=== PATIENT | male | born 1940 | race Caucasian/White ===

== ENCOUNTER 2016-12-03 05:36 | Emergency (ER) | payer MEDICARE, OTHER ==
[2016-12-03] MEDS ORDERED: METHYLPREDNISOLONE SOD SUCC/PF 40 MG/ML VIAL IV ONE (05:40)
[2016-12-03] MEDS ORDERED: ALBUTEROL SULFATE/IPRATROPIUM 3 ML NEBU IH ONE ×2 (05:40→05:48)
--- NOTE | 2016-12-03 05:41 | ERNOTE ---
Medical Problem HPI - General Source: patient Exam Limitations: no limitations - Immun/Allergies/Home Medications Immunizations: IMMUNIZATION HX Immunizations Up to Date Yes History of Influenza Vaccine Yes Hx Pneumococcal Vaccination Yes Allergies/Adverse Reactions: Allergies lisinopril Allergy (Severe, Verified 07/19/16 06:26) Swelling of Tongue penicillin G Allergy (Mild, Verified 07/19/16 06:26) Hives Home Medications: HOME MEDICATIONS Aspirin 325 mg PO DAILY 01/29/16 [Last Taken Unknown] Atorvastatin Calcium 80 mg PO HS 01/29/16 [Last Taken Unknown] Citalopram Hydrobromide [Citalopram HBr] 40 mg PO DAILY 01/29/16 [Last Taken Unknown] Clopidogrel Bisulfate [Plavix] 75 mg PO DAILY 01/29/16 [Last Taken Unknown] Finasteride [Proscar] 5 mg PO DAILY 01/29/16 [Last Taken Unknown] Fluticasone/Salmeterol [Advair 250-50 Diskus] 1 puff IH BID 01/29/16 [Last Taken Unknown] Gabapentin 300 mg PO TID 01/29/16 [Last Taken Unknown] Insulin Aspart [Novolog] 15 units SC TID 01/29/16 [Last Taken Unknown] Ipratropium [place] [Atrovent] 1 vial IH Q6H PRN 01/29/16 [Last Taken Unknown] Levalbuterol Tartrate [Xopenex Hfa] 2 puff IH Q8H PRN 01/29/16 [Last Taken Unknown] Levothyroxine Sodium [Synthroid] 175 mcg PO DAILY 01/29/16 [Last Taken Unknown] Losartan Potassium [Cozaar] 50 mg PO DAILY 01/29/16 [Last Taken Unknown] Metoclopramide HCl [Reglan] 5 mg PO QID 01/29/16 [Last Taken Unknown] Omeprazole [Prilosec] 20 mg PO BID 01/29/16 [Last Taken Unknown] Polyethylene Glycol 3350 [Gavilax] 17 gm PO DAILY 01/29/16 [Last Taken Unknown] Umeclidinium [place] [Incruse Ellipta] 1 puff IH DAILY 01/29/16 [Last Taken Unknown] rOPINIRole HCL [Requip] 2 mg PO HS 01/29/16 [Last Taken Unknown] traMADol HCL [Ultram] 50 mg PO QID PRN 01/29/16 [Last Taken Unknown] Insulin Glargine,Hum.rec.anlog [Lantus] 50 units SC HS #2 vial 01/31/16 [Last Taken Unknown] Levofloxacin [Levaquin] 750 mg PO DAILY@1100 #5 tablet 01/31/16 [Last Taken Unknown] Cefpodoxime Proxetil 200 mg PO BID #20 tablet 07/19/16 [Last Taken Unknown] Levofloxacin [Levaquin] 500 mg PO DAILY #10 tablet 12/03/16 [Last Taken Unknown] - History of Present History Narrative: Here for shortness of breath which started three hours prior to presentation to ED. Has history of COPD and emphysema. Denies fevers or chills Review of Systems - Review of Systems Constitutional: Present: no symptoms reported EYE: Present: no symptoms reported ENT: Present: no symptoms reported Respiratory: Present: See HPI Cardiology: Present: no symptoms reported Gastrointestinal/Abdominal: Present: no symptoms reported Genitourinary: Present: no symptoms reported Musculoskeletal: Present: no symptoms reported Skin: Present: no symptoms reported - Patient's Past Medical History Patient History - Medical: Arthritis, Cataracts, Diabetes Type 2, Depression, GERD, Hypothyroidism Patient History - Cardiac/Respiratory: Hypertension Patient History - Cancer: No Hx of Cancer Patient History - Surgical Procedures: Appendectomy, Cataracts, Total Hip Replacement Patient History - Other: None - Family History Father Family History - Medical: Family History - Cardiac/Respiratory: Hypertension Mother Family History - Medical: , Diabetes Type 2 Family History - Cardiac/Respiratory: Coronary Heart Disease - Social History Living Situations: detention Abuse History: No History of abuse Psych History: Hx of Depression Does anyone smoke in the home?: No Alcohol Use: none Drug Use: none - Immunizations Immunizations Up to Date: Yes Hx Pneumococcal Vaccination: Yes History of Influenza Vaccine: Yes Physical Exam - Physical Exam General Appearance: Present: wd/wn, alert, mild distress - mild resp distress. Resolves nicely with Duoneb and Solumedrol Ears, Nose, Throat: Present: normal ENT inspection Neck: Present: normal inspection, nontender Respiratory: Present: respiratory distress - mild respiratory distress, some bibasal wheezes noted, no rales. Wheezing resolves with Breathing treatment Cardiovascular/Chest: Present: regular rate, rhythm, no murmur, normal peripheral pulses ED Progress - Results and Orders Patient's Lab Results:: I have reviewed the patient's lab results. - Vital Signs Patient's Vital Signs:: I have reviewed the patient's vital signs. Plan - Plan Plan: this patient has COPD exacerbation and will be treated accordingly Departure - Departure Clinical Impression: COPD (chronic obstructive pulmonary disease) Qualifiers: COPD type: unspecified COPD Qualified Code(s): J44.9 - Chronic obstructive pulmonary disease, unspecified Disposition: Home self-care Condition: Good Instructions: Chronic Obstructive Pulmonary Disease Exacerbation, [id number] Prescriptions: Levofloxacin [Levaquin] 500 mg PO DAILY #10 tablet
[2016-12-03] MEDS ORDERED: METHYLPREDNISOLONE SOD SUCC/PF 125 MG/2 ML VIAL ONE (05:53)
[2016-12-03 06:06] LABS: Hematocrit 28.7 % (42.0-52.0); Hemoglobin 8.8 gm/dL (13.5-18.0); Mean Cell Volume 71.8 fl (78-100); Mean Corpuscular Hgb Conc 30.7 g/dl (32-36); Mean Platelet Volume 8.9 fl (6.0-9.5); Neutrophil # 10.8 K/mm3 (1.3-6.0); Neutrophil % 75.4 % (42-75.0); Platelet Count 317 K/mm3 (150-450); Red Cell Distribution Width 15.4 % (11.5-14.0); White Blood Count 14.3 K/mm3 (4.0-10.5)
[2016-12-03 06:27] LABS: Albumin * 2.6 gm/dl (3.4-5.0); Anion Gap 8.7 mmol/L (6.8-13.8); BUN/Creatinine Ratio 24.8 (9.0-21.6); Bilirubin, Total 0.2 mg/dL (0.0-1.1); Ca. Corrected For Albumin 9.3 mg/dL (8.4-10.2); Calcium * 8.5 mg/dL (7.9-10.9); Potassium 4.7 mmol/L (3.4-4.6); Total Protein 6.8 gm/dL (6.2-8.2)
[2016-12-03] MEDS ORDERED: LEVOFLOXACIN 500 MG TABLET PO ONE (06:58)
[2016-12-03] MEDS ORDERED: LEVOFLOXACIN 500 MG TABLET ONE (06:59)
[2016-12-03 07:06] VITALS: BP 156/75
--- OUTSIDE RECORDS SUMMARY | 2016-12-03 07:09 | XMS REPORT | Continuity of Care Document ---
:1940 Author Organization [facility] ([facility]) Address [address] [place] [address] Phone [phone] Care Team Providers Name Role Phone Wilfrid Casiano Primary Care Provider [phone] Source Comments This disclosure is being made pursuant to the Care Everywhere program, applicable federal and state laws, and may not contain all informaitonavailable regarding this patient.[facility] ([facility]) Active Allergies and Adverse Reactions Allergen Noted Date Severity Reactions Comments Lisinopril 12/29/2015 Unknown Penicillin 09/24/2015 Rash Current Medications Prescription Sig. Disp. Refills Start Date End Date Status levothyroxine 175 Take 175 mcg by Active mcg tablet mouth every morning before breakfast. omeprazole 20 mg Take 20 mg by mouth Active enteric coated 2 times daily. capsule gabapentin 300 mg Take 300 mg by mouth Active capsule 3 times daily. finasteride 5 mg Take 5 mg by mouth Active tablet daily. insulin glargine Inject 40 Units Active (LanTUS) 100 unit/mL subcutaneously at injection vial bedtime. aspirin 325 mg EC Take 325 mg by mouth Active tablet daily. metoclopramide 5 mg Take 5 mg by mouth 4 Active tablet times daily. citalopram 20 mg Take 20 mg by mouth Active tablet at bedtime . albuterol-ipratropiu Use 3 mL by Active m 2.5-0.5 mg/3 mL inhalation every 6 inhalation solution hours as needed . ferrous sulfate 325 Take 325 mg by mouth Active mg (65 mg iron) daily. tablet atorvastatin 80 mg Take 80 mg by mouth Active tablet every evening. polyethylene glycol Take 17 g by mouth Active 3350 17 gram packet daily. sennosides 8.6 mg Take 2 tablets by Active tablet mouth 2 times daily. levalbuterol Use 2 Puffs by Active (XOPENEX HFA) 45 inhalation every 8 mcg/Actuation hours as needed. inhaler rOPINIRole 2 mg Take 2 mg by mouth Active tablet at bedtime. tiotropium (SPIRIVA) Use 18 mcg by Active 18 mcg inhalation inhalation daily. capsule insulin aspart Inject 10 Units Active (NovoLOG) 100 subcutaneously 3 unit/mL injection times daily before vial meals. clopidogrel 75 mg Take 75 mg by mouth Active tablet daily. fluticasone-salmeter Use 1 Puff by Active ol (ADVAIR 250-50) inhalation every 12 inhaler hours. sennoside-docusate Take 2 tablets by Active sodium 8.6-50 mg per mouth 2 times daily. tablet HYDROcodone-acetamin Take 1 tablet by 30 tablet 0 09/29/2015 Active ophen 5-325 mg per mouth every 6 hours tablet as needed. traMADol 50 mg Take 1 tablet (50 mg 30 tablet 0 09/29/2015 Active tablet total) by mouth 4 times daily as needed. insulin lispro Inject Active (HumaLOG) 100 subcutaneously 3 unit/mL injection times daily before vial meals. nystatin 100,000 Take 5 mL by mouth 4 Active unit/mL suspension times daily. Swish and swallow. umeclidinium Use 1 Puff by Active (INCRUSE ELLIPTA) inhalation daily. 62.5 mcg/actuation inhaler losartan 50 mg Take 50 mg by mouth Active tablet daily. acetaminophen 325 mg Take 325 mg by mouth Active tablet every 4 hours as needed. Active Problems Problem Noted Date Open fracture of left fibula and tibia 09/24/2015 Type 2 diabetes mellitus without complication 09/24/2015 Coronary artery disease involving [place] coronary artery of [place] heart 09/23 without angina pectoris Pulmonary emphysema 09/24/2015 Fx tibia/fibula shaft-op 09/24/2015 Most Recent Encounters Date Type Specialty Providers Description 10/31/2016 Telephone Orthopaedic Gregory Tate MD Immunizations Name Dates Previously Given Next Due Pneumococcal Polysaccharide, PPSV23 (Pneumovax 23) 09/29/2015 Social History Tobacco Use Types Packs/Day Years Used Date Former Smoker Cigarettes Smokeless Tobacco: Former User Chew Tobacco Cessation:Counseling Given: No Comments: Last Filed Vital Signs Vital Sign Reading Time Taken Blood Pressure 161/71 09/29/2015 8:00 AM [employer] Pulse 79 09/29/2015 8:00 AM [employer] Temperature 35.7 C (96.3 F) 09/29/2015 8:00 AM [employer] Respiratory Rate 20 09/29/2015 12:00 PM [employer] Height 1.778 m (5' 10") 09/24/2015 11:30 PM [employer] Weight 90 kg (198 lb 6.6 oz) 09/28/2015 4:00 PM [employer] Body Mass Index 28.47 09/28/2015 4:00 PM [employer] Oxygen Saturation 96% 09/29/2015 8:00 AM [employer] Plan of Care Health Maintenance Due Date Last Done Comments Hepatitis B Vaccine (1 of 3 - Primary 1940 Series) Tdap Vaccine 1950 Td Vaccine 1957 Colonoscopy 02/11/1989 DIABETIC: Cholesterol 04/21/1998 04/21/1997, 03/10/1997, 07/19/1996 Diabetic: Hdl 04/21/1998 04/21/1997, 03/10/1997, 07/19/1996 Diabetic: Ldl 04/21/1998 04/21/1997, 03/10/1997, 07/19/1996 DIABETIC: Microalbumin 04/21/1998 04/21/1997, 04/19/1996 DIABETIC: Triglycerides 04/21/1998 04/21/1997, 03/10/1997, 07/19/1996 Zoster Vaccine 1999 DIABETIC: Foot Exam 09/24/2015 DIABETIC: Retinal Eye Exam 09/24/2015 DIABETIC: Hemoglobin A1C 03/27/2016 09/25/2015 Pneumococcal Vaccine (2 of 2 - PCV13) 09/28/2016 09/29/2015 Influenza Vaccine: Seasonal (Season 02/21/2017 Ended) Results from Last 3 Months Not on file
== END 2016-12-03 07:16 | disposition home or self-care (01) ==
LOC: ER 05:36
DX: J44.9 Chronic obstructive pulmonary disease, unspecified (principal)

== ENCOUNTER 2016-12-07 18:24 | Observation (INO) | payer MEDICAID, MEDICARE ==
--- NOTE | 2016-12-07 19:09 | ERNOTE ---
Dyspnea - General Presenting Symptoms: shortness of breath Time Seen by Provider: 12/07/16 18:56 Source: patient, family Exam Limitations: no limitations - Immun/Allergies/Home Medications Immunizations: IMMUNIZATION HX Immunizations Up to Date Yes History of Influenza Vaccine Yes Hx Pneumococcal Vaccination Yes Allergies/Adverse Reactions: Allergies lisinopril Allergy (Severe, Verified 12/07/16 18:40) Swelling of Tongue penicillin G Allergy (Mild, Verified 12/07/16 18:40) Hives Home Medications: HOME MEDICATIONS Aspirin 325 mg PO DAILY 01/29/16 [Last Taken Unknown] Atorvastatin Calcium 80 mg PO HS 01/29/16 [Last Taken Unknown] Citalopram Hydrobromide [Citalopram HBr] 40 mg PO DAILY 01/29/16 [Last Taken Unknown] Clopidogrel Bisulfate [Plavix] 75 mg PO DAILY 01/29/16 [Last Taken Unknown] Finasteride [Proscar] 5 mg PO DAILY 01/29/16 [Last Taken Unknown] Fluticasone/Salmeterol [Advair 250-50 Diskus] 1 puff IH BID 01/29/16 [Last Taken Unknown] Gabapentin 300 mg PO TID 01/29/16 [Last Taken Unknown] Insulin Aspart [Novolog] 15 units SC TID 01/29/16 [Last Taken Unknown] Ipratropium [place] [Atrovent] 1 vial IH Q6H PRN 01/29/16 [Last Taken Unknown] Levalbuterol Tartrate [Xopenex Hfa] 2 puff IH Q8H PRN 01/29/16 [Last Taken Unknown] Levothyroxine Sodium [Synthroid] 175 mcg PO DAILY 01/29/16 [Last Taken Unknown] Losartan Potassium [Cozaar] 50 mg PO DAILY 01/29/16 [Last Taken Unknown] Metoclopramide HCl [Reglan] 5 mg PO QID 01/29/16 [Last Taken Unknown] Omeprazole [Prilosec] 20 mg PO BID 01/29/16 [Last Taken Unknown] Polyethylene Glycol 3350 [Gavilax] 17 gm PO DAILY 01/29/16 [Last Taken Unknown] Umeclidinium [place] [Incruse Ellipta] 1 puff IH DAILY 01/29/16 [Last Taken Unknown] rOPINIRole HCL [Requip] 2 mg PO HS 01/29/16 [Last Taken Unknown] traMADol HCL [Ultram] 50 mg PO QID PRN 01/29/16 [Last Taken Unknown] Insulin Glargine,Hum.rec.anlog [Lantus] 50 units SC HS #2 vial 01/31/16 [Last Taken Unknown] Levofloxacin [Levaquin] 750 mg PO DAILY@1100 #5 tablet 01/31/16 [Last Taken Unknown] Cefpodoxime Proxetil 200 mg PO BID #20 tablet 07/19/16 [Last Taken Unknown] Levofloxacin [Levaquin] 500 mg PO DAILY #10 tablet 12/03/16 [Last Taken Unknown] - History of Present Illness Narrative: Patient was seen in the Er four days ago for shortness of breath, diagnosed with COPD exacerbation and discharged on levaquin. Patient states that he started to feel better but was stilled fatigued. Today as he was having dinner around 17:00 he suddenly got very weak and more short of breath again, denies any chest pain, but had worsening shortness of breath, similar to when he was seen in the ER before. The symptoms remind him of when he had an [place]. Currently he is feeling better Date (Duration): 12/07/16 Time (Timing): 17:00 Review of Systems - Review of Systems Constitutional: Present: recent illness. Absent: fever Respiratory: Present: See HPI, shortness of breath, cough - chronic Cardiology: Absent: chest pain Gastrointestinal/Abdominal: Absent: nausea, vomiting, diarrhea, abdominal pain Genitourinary: Present: no symptoms reported Neurological: Present: weakness - generalized. Absent: headache, numbness - Patient's Past Medical History Patient History - Medical: Arthritis, Cataracts, Diabetes Type 2, Depression, GERD, Hypothyroidism Patient History - Cardiac/Respiratory: Coronary Heart Disease, COPD, Hypertension, Hyperlipidemia Patient History - Cancer: No Hx of Cancer Patient History - Surgical Procedures: Appendectomy, Cataracts, Total Hip Replacement Patient History - Other: None - Family History Father Family History - Medical: Family History - Cardiac/Respiratory: Hypertension Mother Family History - Medical: , Diabetes Type 2 Family History - Cardiac/Respiratory: Coronary Heart Disease - Social History Living Situations: home - with daughter Abuse History: No History of abuse Psych History: Hx of Depression Does anyone smoke in the home?: No Smoking Status: Former smoker Alcohol Use: none Drug Use: none - Immunizations Immunizations Up to Date: Yes Hx Pneumococcal Vaccination: Yes History of Influenza Vaccine: Yes Physical Exam - Physical Exam General Appearance: Present: wd/wn, alert, no apparent distress Eye Exam: Normal inspection: bilateral, PERRL: bilateral Respiratory: Present: no respiratory distress, no accessory muscle use, lungs clear, decreased breath sounds, expiration (prolonged) Cardiovascular/Chest: Present: regular rate, rhythm, no murmur Gastrointestinal/Abdominal: Present: nontender, soft, abnormal bowel sounds - decreased, distended Extremity Exam: Present: no edema Neurological Exam: Present: alert, oriented, normal mood/affect Skin Exam: Present: normal color, warm/dry ED Progress - Results and Orders Patient's Lab Results:: I have reviewed the patient's lab results. - Vital Signs Patient's Vital Signs:: I have reviewed the patient's vital signs. Vital Signs: Vital Signs 12/07/16 18:34 Temperature 36.7 C Pulse Rate 71 Respiratory 26 H Rate Blood Pressure 89/49 O2 Sat by Pulse 95 Oximetry - EKG EKG: NSR, RBBB - incomplete, nonspecific ST T wave changes, unchanged from - - X-Ray X-Ray #1 X-Ray: chest - chronic changes, cardiomegaly, no acute Interpretation: Interp. by me X-Ray #2 X-Ray: abdomen - non specific gas pattern, large amount of stool Interpretation: Interp. by me - Progress/Reassessment Chief Complaint: General Assessment Progress Note-Subjective: 12/07/16 20:30 discussed results with patient and family, currently stable, discussed admission for chest pain equivalent especially since blood pressure running on the low side, see nurses note 12/07/16 20:37 discussed admission with Adilene Baumann, accepted patient for observation Departure Clinical Impression: Weakness generalized Hypotension Qualifiers: Hypotension type: unspecified hypotension type Qualified Code(s): I95.9 - Hypotension, unspecified Constipation Qualifiers: Constipation type: unspecified constipation type Qualified Code(s): K59.00 - Constipation, unspecified - Departure Disposition: [facility] Condition: Good Referrals: Wilfrid Casiano DO [Primary Care Provider] -
--- OUTSIDE RECORDS SUMMARY | 2016-12-07 19:12 | XMS REPORT | Continuity of Care Document ---
:1940 Author Organization [facility] ([facility]) Address [address] [place] [address] Phone [phone] Care Team Providers Name Role Phone Wilfrid Casiano Primary Care Provider [phone] Source Comments This disclosure is being made pursuant to the Care Everywhere program, applicable federal and state laws, and may not contain all informaitonavailable regarding this patient.[facility] ([facility]) Active Allergies and Adverse Reactions Allergen [...] without complication 09/24/2015 Coronary artery disease involving [place] coronary artery of [place] heart 09/23 without angina pectoris Pulmonary emphysema [...] Taken Blood Pressure 161/71 09/29/2015 8:00 AM SUPERVISOR FINAL Pulse 79 09/29/2015 8:00 AM [employer]PERVIS[employer]AL Temperature 35.7 C (96.3 F) 09/29/2015 8:00 AM SUPERVISOR FINAL Respiratory Rate 20 09/29/2015 12:00 PM [employer] FINAL Height 1.778 m (5' 10") 09/24/2015 11:30 PM SU[employer] FINAL Weight 90 kg (198 lb 6.6 oz) 09/28/2015 4:00 PM [employer] FINAL Body Mass Index 28.47 09/28/2015 4:00 PM SUPER[employer] FINAL Oxygen Saturation 96% 09/29/2015 8:00 AM SUPERVISOR FINAL Plan of Care Health Maintenance Due Date [...]
[2016-12-07] MEDS ORDERED: NORMAL SALINE 1,000 ML IV ONE (19:18)
[2016-12-07 19:19] LABS: Hematocrit 28.2 % (42.0-52.0); Hemoglobin 8.5 gm/dL (13.5-18.0); Mean Cell Volume 72.3 fl (78-100); Mean Corpuscular Hemoglobin 21.8 pg (27-31); Mean Corpuscular Hgb Conc 30.1 g/dl (32-36); Mean Platelet Volume 8.3 fl (6.0-9.5); Neutrophil # 3.6 K/mm3 (1.3-6.0); Neutrophil % 56.8 % (42-75.0); Platelet Count 307 K/mm3 (150-450); Red Cell Distribution Width 15.7 % (11.5-14.0); White Blood Count 6.3 K/mm3 (4.0-10.5)
[2016-12-07 19:45] LABS: Troponin I Less than 0.017 ng/ml (0.00-0.10)
[2016-12-07 19:52] LABS: Anion Gap 7.5 mmol/L (6.8-13.8); BUN/Creatinine Ratio 19.7 (9.0-21.6); Blood Urea Nitrogen 23 mg/dL (6-23); Carbon Dioxide 34.4 mmol/L (24-32.6); Chloride 103 mmol/L (97-106); Glucose * 64 mg/dL (70-110); Potassium 3.9 mmol/L (3.4-4.6); Sodium 141 mmol/L (132-142)
[2016-12-07 19:53] LABS: ALT 23 U/L (19-67); AST 18 U/L (0-48); Albumin * 2.6 gm/dl (3.4-5.0); Alkaline Phosphatase * 101 U/L (50-170); BNP * 128 pg/mL (5-650); Bilirubin, Total 0.2 mg/dL (0.0-1.1); Ca. Corrected For Albumin 9.3 mg/dL (8.4-10.2); Calcium * 8.5 mg/dL (7.9-10.9); Total Protein 6.9 gm/dL (6.2-8.2)
[2016-12-07] MEDS ORDERED: ALBUTEROL SULFATE 2.5 MG/3 ML VIAL.NEB IH ONE (20:41)
[2016-12-07] MEDS ORDERED: ALBUTEROL SULFATE 2.5 MG/0.5 ML VIAL.NEB IH ONE (20:41)
--- OUTSIDE RECORDS SUMMARY | 2016-12-07 20:48 | XMS REPORT | Continuity of Care Document ---
:1940 Author Organization [facility] ([facility]) Address [address] [place] [address] Phone [phone] Care Team Providers Name Role Phone Wilfrid Casiano Primary Care Provider [phone] Source Comments This disclosure is being made pursuant to the Care Everywhere program, applicable federal and state laws, and may not contain all informaitonavailable regarding this patient.[facility] ([facility]) Active Allergies and Adverse Reactions Allergen [...] without complication 09/24/2015 Coronary artery disease involving [place] coronary artery of [place] heart 09/23 without angina pectoris Pulmonary emphysema [...] Taken Blood Pressure 161/71 09/29/2015 8:00 AM HOME [employer]PERT Pulse 79 09/29/2015 8:00 AM HOME [employer] EXPERT Temperature 35.7 C (96.3 F) 09/29/2015 8:00 AM HOME [employer] EXPERT Respiratory Rate 20 09/29/2015 12:00 PM HOME [employer] EXPERT Height 1.778 m (5' 10") 09/24/2015 11:30 PM HOME [employer] EXPERT Weight 90 kg (198 lb 6.6 oz) 09/28/2015 4:00 PM HOME [employer] EXP[employer] Body Mass Index 28.47 09/28/2015 4:00 PM HOME [employer]OM[employer] EXPERT Oxygen Saturation 96% 09/29/2015 8:00 AM HOME E[employer]OMICS EXPERT Plan of Care Health Maintenance Due Date [...]
[2016-12-07] MEDS ORDERED: BISACODYL 10 MG SUPP.RECT RC ONE (22:02)
--- NOTE | 2016-12-07 22:04 | HP ---
Chief Complaint - Chief Complaint Date of Service: 12/07/16 Time of Service: 21:37 Chief Complaint: "SOB, Blurry vision, Jerking, Weakness". Source of HPI- Pt; reliable, ER provider report. History of Present Illness: Mr. Ca is a 76-yr-old WM pt of Dr. Wilfrid Casiano with a PMH of:Asthma, CAD, Constipation, COPD, DM II, GERD & Hypothyroidism. Pt states that while eating supper tonight at about 5.30pm, he suddenly got SOB. He also reports he had the accompanying symptoms of blurry vision & coldness, and his arms begun 'jerking and he could not lift them.' His daughter saw how he was acting and insisted that he needed to be checked out. Pt reports that his symptoms were similar to a prior Heart attack/ [place] event that occurred about 10 yrs ago. He denies n/v, diaphoresis or chest pressure/pain/tightness. He states that the symptoms were gone by the time he arrived to the ED. During evaluation at the ED, the CXR did not have not have any acute findings. The initial EKG & Troponin were negative of ACS/[place]. He has Cardiovascular diseases risk factors involving obesity, diabetes, and prior tobacco use. He will be admitted under observation status for remote telemetry monitoring and to ensure the cause of his symptoms are non- cardiac related. - Patient's Past Medical History Patient History - Medical: Arthritis, Cataracts, Diabetes Type 2, Depression, GERD, Hypothyroidism Patient History - Cardiac/Respiratory: Coronary Heart Disease, COPD, Hypertension, Hyperlipidemia Patient History - Cancer: No Hx of Cancer Patient History - Surgical Procedures: Appendectomy, Cataracts, Total Hip Replacement Patient History - Other: None - Family History Father Family History - Medical: Family History - Cardiac/Respiratory: Hypertension Mother Family History - Medical: , Diabetes Type 2 Family History - Cardiac/Respiratory: Coronary Heart Disease - Social History Living Situations: home - with daughter Abuse History: No History of abuse Psych History: Hx of Depression Does anyone smoke in the home?: No Smoking Status: Former smoker Alcohol Use: none Drug Use: none - Immunizations Immunizations Up to Date: Yes Hx Pneumococcal Vaccination: Yes History of Influenza Vaccine: Yes Review Of Systems (GEN) - Review of Systems Generalized/Overall Review: Present: Weakness. Absent: Chills, Fever, Diaphoresis, Fatigue EENTM: Present: Blurred Vision. Absent: Eye Pain, Tearing, Double Vision Respiratory: Present: Cough, Shortness of Breath. Absent: Orthopnea, Stridor Cardiac: Absent: Chest Pain, Palpitations, Syncope Abdominal: Present: Constipation. Absent: Nausea, Vomiting, Abdominal Pain Genitourinary: Absent: Burning, Frequency, Hesitancy Musculoskeletal: Absent: Joint Pain, Back Pain, Joint Swelling Neurological: Present: Headache, Tremors, Weakness. Absent: Anxiety, Depressed Skin: Present: Bruising. Absent: Dryness Endocrine: Present: Intolerance to Cold. Absent: Increased Hunger, Increased Thirst Misc: All systems neg except as marked Immunizations: IMMUNIZATION HX Immunizations Up to Date Yes History of Influenza Vaccine Yes Hx Pneumococcal Vaccination Yes Allergies/Adverse Reactions: Allergies Allergy/AdvReac Type Severity Reaction Status Date / Time lisinopril Allergy Severe Swelling Verified 12/07/16 18:40 of Tongue penicillin G Allergy Mild Hives Verified 12/07/16 18:40 Home Medications: HOME MEDICATIONS Aspirin 325 mg PO DAILY 01/29/16 [Last Taken Unknown] Atorvastatin Calcium 80 mg PO HS 01/29/16 [Last Taken Unknown] Clopidogrel Bisulfate [Plavix] 75 mg PO DAILY 01/29/16 [Last Taken Unknown] Finasteride [Proscar] 5 mg PO DAILY 01/29/16 [Last Taken Unknown] Fluticasone/Salmeterol [Advair 250-50 Diskus] 1 puff IH BID 01/29/16 [Last Taken Unknown] Gabapentin 300 mg PO TID 01/29/16 [Last Taken Unknown] Insulin Aspart [Novolog] 15 units SC TID 01/29/16 [Last Taken Unknown] Ipratropium [place] [Atrovent] 1 vial IH Q6H PRN 01/29/16 [Last Taken Unknown] Levalbuterol Tartrate [Xopenex Hfa] 2 puff IH Q8H PRN 01/29/16 [Last Taken Unknown] Levothyroxine Sodium [Synthroid] 175 mcg PO DAILY 01/29/16 [Last Taken Unknown] Metoclopramide HCl [Reglan] 5 mg PO QID 01/29/16 [Last Taken Unknown] Omeprazole [Prilosec] 20 mg PO BID 01/29/16 [Last Taken Unknown] Polyethylene Glycol 3350 [Gavilax] 17 gm PO DAILY 01/29/16 [Last Taken Unknown] Umeclidinium [place] [Incruse Ellipta] 1 puff IH DAILY 01/29/16 [Last Taken Unknown] rOPINIRole HCL [Requip] 2 mg PO HS 01/29/16 [Last Taken Unknown] traMADol HCL [Ultram] 50 mg PO QID PRN 01/29/16 [Last Taken Unknown] Insulin Glargine,Hum.rec.anlog [Lantus] 50 units SC HS #2 vial 01/31/16 [Last Taken Unknown] Acetaminophen [Tylenol] 650 mg PO Q4H PRN 12/07/16 [Last Taken Unknown] Albuterol Sulfate [Albuterol Sulfate 2.5 MG/3 ML] 2.5 mg IH Q6H PRN 12/07/16 [ Last Taken Unknown] Docusate Sodium [Colace] 100 mg PO HS PRN 12/07/16 [Last Taken Unknown] HYDROcodone/ACETAMINOPHEN [[place] 5-325 Tablet] 1 tab PO Q6H PRN 12/07/16 [Last Taken Unknown] Mometasone Furoate [Nasonex] 2 spray NS DAILY 12/07/16 [Last Taken Unknown] Sennosides [Senna Lax] 2 tab PO BID PRN 12/07/16 [Last Taken Unknown] Exam - Exam Vital Signs: Vital Signs - Last Taken Temp 36.6 C 12/07/16 21:10 Pulse 74 12/07/16 21:10 Resp 18 12/07/16 21:10 BP 136/71 12/07/16 21:10 Pulse Ox 95 12/07/16 21:10 Constitutional: Present: Alert, Oriented x3, Cooperative, No distress ENT Exam: Present: normal ENT inspection Eye Exam: bilateral eye: normal inspection, PERRL Neck: Present: full range of motion, supple, normal inspection Back Exam: Present: normal inspection Breasts: Present: Exam deferred Respiratory: Present: no accessory muscle use, rhonchi - Thoughout the Lung fileds Cardiovascular/Chest: Present: regular rate, rhythm, no edema, no murmur Abdomen: Present: Normal bowel sounds, nontender, obese, distended /Rectal: Present: Exam deferred Extremity: Present: non-tender, normal inspection, no pedal edema Skin Exam: Present: no cyanosis Lymphatic: Present: no adenopathy Neurologic: Present: no motor/sensory deficits, alert, normal mood/affect, oriented x 3. Absent: abnormal gait, aphasia, facial droop Appearance: Present: appropriate appearance, appropriate insight Eye contact: Present: cooperative, good eye contact, normal speech Thoughts: Present: normal thought pattern, no apparent hallucination Diagnostic Studies: Laboratory Results WBC 6.3 K/mm3 (4.0-10.5) 12/07/16 19:12 RBC 3.90 M/mm3 (4.7-6.0) L 12/07/16 19:12 Hgb 8.5 gm/dL (13.5-18.0) L 12/07/16 19:12 Hct 28.2 % (42.0-52.0) L 12/07/16 19:12 MCV 72.3 fl (78-100) L 12/07/16 19:12 MCH 21.8 pg (27-31) L 12/07/16 19:12 MCHC 30.1 g/dl (32-36) L 12/07/16 19:12 RDW 15.7 % (11.5-14.0) H 12/07/16 19:12 Plt Count 307 K/mm3 (150-450) 12/07/16 19:12 MPV 8.3 fl (6.0-9.5) 12/07/16 19:12 Immature Gran % (Auto) 0.60 % (0.001-0.429) H 12/07/16 19:12 Immature Gran # (Auto) 0.04 K/mm3 (0.000-0.0310) H 12/07/16 19:12 Neutrophils % 56.8 % (42-75.0) 12/07/16 19:12 Lymphocytes % 25.0 % (20-51) 12/07/16 19:12 Monocytes % 12.3 % (0.0-9) H 12/07/16 19:12 Eosinophils % 3.7 % (0.0-3.0) H 12/07/16 19:12 Basophils % 1.6 % (0.0-1.0) H 12/07/16 19:12 Nucleated RBC % 0.0 k/mm3 (0-1) 12/07/16 19:12 Neutrophils # 3.6 K/mm3 (1.3-6.0) 12/07/16 19:12 Lymphocytes # 1.6 k/mm3 (1.5-3.5) 12/07/16 19:12 Monocytes # 0.8 k/mm3 (0.0-1.0) 12/07/16 19:12 Eosinophils # 0.2 k/mm3 (0.0-0.7) 12/07/16 19:12 Absolute Basophils 0.1 k/mm3 (0.0-0.1) 12/07/16 19:12 Sodium 141 mmol/L (132-142) 12/07/16 19:12 Plasma Sodium 140 mmol/L (130-142) 12/07/16 19:12 Potassium 3.9 mmol/L (3.4-4.6) 12/07/16 19:12 Chloride 103 mmol/L (97-106) 12/07/16 19:12 Carbon Dioxide 34.4 mmol/L (24-32.6) H 12/07/16 19:12 Anion Gap 7.5 mmol/L (6.8-13.8) 12/07/16 19:12 BUN 23 mg/dL (6-23) 12/07/16 19:12 Creatinine 1.17 mg/dL (0.4-1.4) 12/07/16 19:12 Est GFR (Non-Af Amer) 64 mL/min (60-130) 12/07/16 19:12 BUN/Creatinine Ratio 19.7 (9.0-21.6) 12/07/16 19:12 Random Glucose 64 mg/dL (70-110) L 12/07/16 19:12 Lactic Acid, Venous 1.1 mmol/L (0.4-1.9) 12/07/16 19:12 Calcium 8.5 mg/dL (7.9-10.9) 12/07/16 19:12 Calcium Adj for Albumin 9.3 mg/dL (8.4-10.2) 12/07/16 19:12 Total Bilirubin 0.2 mg/dL (0.0-1.1) 12/07/16 19:12 AST 18 U/L (0-48) 12/07/16 19:12 ALT 23 U/L (19-67) 05/17/17 19:12 Alkaline Phosphatase 101 U/L (50-170) 12/07/16 19:12 Troponin I Less than 0.017 ng/ml (0.00-0.10) 12/07/16 19:12 B-Natriuretic Peptide 128 pg/mL (5-650) 12/07/16 19:12 Total Protein 6.9 gm/dL (6.2-8.2) 12/07/16 19:12 Albumin 2.6 gm/dl (3.4-5.0) L 12/07/16 19:12 Assessment/Plan - Assessment/Plan (1) Anginal equivalent Assessment: The pt did not have any chest pain as such but reported anginal "equivalents" symptoms involving Dyspnea and Weakness, which can occur in Diabetic patient instead of Chest Pain. B/P was slightly Hypotensive, but mostly remained stable at the ED without any dyspnea, n/v &diaphoresis. The EKG did not have any ST-T wave changes and troponin was -ve. Will monitor serial troponins and repeat EKG to exclude [place]. If markers remain negative, EKG remains at normal baseline & no other symptoms develop overnight, will arrange for exercise stress testing outpatient due to his cardiac risk factors. Problem: Acute (2) Constipation Assessment: Pt noted to have abdominal distention. Denies Abd pain, n/v and there is no tenderness on palpation. Abd X-ray showed scattered stool retention and non- obstructive bowel gas pattern. Will give additional stool laxative/stimulants. Problem: Acute (3) Hypoglycemia associated with diabetes Assessment: The glucose level on [facility] was noted to be 64, & Accucheck screening [facility] was found to be 53 at [facility] Home doses of insulin includes Lantus 50 units hs & Aspart 15 units t.i.d. Will hold tonight's doses and have attending PCP reevaluate individualized glycemic controls and raise glycemic targets to reduce the risks of future episodes. Pt will be reinforced on how to recognize and and respond to hypoglycemic symptoms and also advise to wear medical alert identification. Problem: Acute (4) COPD (chronic obstructive pulmonary disease) Assessment: Continue Neb Treatments and give one more dose of oral Levaquin to complete outpatient treatment for COPD Exac. Seen at the ED on 12/03/16 for SOB. Started on Levaquin 500mg x 5 days. WBC down to 6.3 from 14.7 Problem: Chronic Qualifiers: COPD type: unspecified COPD Qualified Code(s): J44.9 - Chronic obstructive pulmonary disease, unspecified (5) Diabetes mellitus Problem: Chronic Qualifiers: Diabetes mellitus type: type 2
[2016-12-07] MEDS ORDERED: NON-FORMULARY 1 DOSE DOSE (Levalbuterol Tartrate [Xopenex Hfa] 2 PUFF) IH PRN (22:33)
[2016-12-07] MEDS ORDERED: DOCUSATE SODIUM 100 MG CAPSULE PO PRN (22:33)
[2016-12-07] MEDS ORDERED: ACETAMINOPHEN 325 MG TABLET PO PRN (22:33)
[2016-12-07] MEDS ORDERED: SENNOSIDES 8.6 MG TABLET PO PRN (22:33)
[2016-12-07] MEDS ORDERED: HYDROcodone/ACETAMINOPHEN 1 EACH TABLET PO PRN (22:33)
[2016-12-07] MEDS ORDERED: traMADol HCL 50 MG TABLET PO PRN (22:33)
[2016-12-07] MEDS ORDERED: ALBUTEROL SULFATE 2.5 MG/3 ML VIAL.NEB IH PRN (22:33)
[2016-12-07] MEDS ORDERED: POLYETHYLENE GLYCOL 3350 119 GM BTL ONE (23:13)
[2016-12-07] MEDS ORDERED: rOPINIRole HCL 1 MG TABLET ONE (23:13)
[2016-12-07] MEDS: GABAPENTIN 300 MG CAPSULE PO SCH (23:18)
[2016-12-07] MEDS: POLYETHYLENE GLYCOL 3350 119 GM BTL PO SCH (23:18)
[2016-12-07] MEDS: METOCLOPRAMIDE HCL 5 MG TABLET PO SCH (23:19)
[2016-12-07] MEDS: FLUTICASONE/SALMETEROL 14 PUFF DISK.W.DEV IH SCH (23:25)
[2016-12-07] MEDS ORDERED: INSULIN GLARGINE,HUM.REC.ANLOG 100 UNITS/ML VIAL SC SCH (23:35)
[2016-12-07] MEDS ORDERED: NORMAL SALINE 1,000 ML IV PRN (23:48)
[2016-12-07] MEDS ORDERED: ALBUTEROL SULFATE 2.5 MG/3 ML VIAL.NEB IH SCH (23:58)
[2016-12-08] MEDS ORDERED: LEVOFLOXACIN 500 MG TABLET PO ONE (00:06)
[2016-12-08] MEDS: ALBUTEROL SULFATE 2.5 MG/3 ML VIAL.NEB IH SCH ×3 (00:19→13:11)
[2016-12-08] MEDS ORDERED: LEVOFLOXACIN 250 MG TABLET ONE (00:40)
[2016-12-08] MEDS: IPRATROPIUM BROMIDE 0.5 MG/2.5 ML VIAL.NEB IH PRN ×2 (02:52→10:04)
[2016-12-08] MEDS ORDERED: LEVALBUTEROL HCL 1.25 MG/3 ML AMPUL IH PRN (06:13)
[2016-12-08] MEDS ORDERED: ASPIRIN 325 MG TABLET.DR PO SCH (09:00)
[2016-12-08] MEDS ORDERED: PANTOPRAZOLE SODIUM 20 MG TABLET.DR PO SCH (09:00)
[2016-12-08] MEDS ORDERED: NON-FORMULARY 1 DOSE DOSE (Umeclidinium Bromide [Incruse Ellipta] 1 PUFF) IH SCH (09:00)
[2016-12-08] MEDS ORDERED: TIOTROPIUM BROMIDE 5 CAP INHALER IH SCH (09:00)
[2016-12-08] MEDS ORDERED: LEVOTHYROXINE SODIUM 175 MCG TABLET PO SCH (09:00)
[2016-12-08] MEDS ORDERED: FINASTERIDE 5 MG TABLET PO SCH (09:00)
[2016-12-08] MEDS ORDERED: CLOPIDOGREL BISULFATE 75 MG TABLET PO SCH (09:00)
[2016-12-08] MEDS ORDERED: OMEPRAZOLE 20 MG CAPSULE.SA PO SCH (09:00)
[2016-12-08] MEDS ORDERED: MOMETASONE FUROATE 120 SPRAY INHALER NS SCH ×2 (09:00)
[2016-12-08 09:21] LABS: Hematocrit 27.7 % (42.0-52.0); Hemoglobin 8.4 gm/dL (13.5-18.0); Mean Cell Volume 72.7 fl (78-100); Mean Corpuscular Hgb Conc 30.3 g/dl (32-36); Mean Platelet Volume 9.5 fl (6.0-9.5); Neutrophil # 6.7 K/mm3 (1.3-6.0); Neutrophil % 73.6 % (42-75.0); Platelet Count 310 K/mm3 (150-450); Red Blood Count 3.81 M/mm3 (4.7-6.0); Red Cell Distribution Width 15.9 % (11.5-14.0); White Blood Count 9.1 K/mm3 (4.0-10.5)
[2016-12-08 09:38] LABS: Albumin * 2.8 gm/dl (3.4-5.0); Anion Gap 11.3 mmol/L (6.8-13.8); BUN/Creatinine Ratio 23.9 (9.0-21.6); Bilirubin, Total 0.3 mg/dL (0.0-1.1); Ca. Corrected For Albumin 9.1 mg/dL (8.4-10.2); Calcium * 8.5 mg/dL (7.9-10.9); Carbon Dioxide 28.6 mmol/L (24-32.6); Potassium 4.9 mmol/L (3.4-4.6); Total Protein 7.3 gm/dL (6.2-8.2)
[2016-12-08 09:45] LABS: Troponin I 0.081 ng/ml (0.00-0.10)
[2016-12-08] MEDS: FLUTICASONE/SALMETEROL 14 PUFF DISK.W.DEV IH SCH (09:54)
[2016-12-08] MEDS: INSULIN ASPART 100 UNITS/ML VIAL SC SCH ×3 (09:56→12:55)
[2016-12-08] MEDS: GABAPENTIN 300 MG CAPSULE PO SCH ×2 (09:56→13:05)
[2016-12-08] MEDS: METOCLOPRAMIDE HCL 5 MG TABLET PO SCH ×2 (09:57→13:05)
[2016-12-08] MEDS: POLYETHYLENE GLYCOL 3350 119 GM BTL PO SCH (10:08)
--- NOTE | 2016-12-08 13:15 | DS ---
(1) Chest pain Problem: Acute (2) Constipation Problem: Acute Qualifiers: Constipation type: unspecified constipation type Qualified Code(s): K59.00 - Constipation, unspecified Description of Stay: Salvador is a 76 yo male that was admitted for chest pain. Initial workup was negative for acute GA. He was admitted on telemetry with serial troponins. There was no evidence of acute GA during hospital work-up. Symptomatically patient was constipated and it appeared that his reported chest pain was related to bowel movements. He was given medication to help facilitate a bowel movement and chest pain improved. Procedures Performed: none Discharge Disposition: Home self care Disposition: Home self-care Condition: Good Discharge Activity: Activity as tolerated Discharge Diet: Consistent carbs Referrals: Wilfrid Casiano DO [Primary Care Provider] - One Week Problem Oriented Discharge Instructions to Patient/Family: Chest Pain Observation Additional Patient Instructions (free text): [facility] ongoing, please call and fax discharge information to them. TCM appt, please call Ashanti at ext. [phone] when discharged. Follow up with Dr. Casiano 12/15 at 10:00. Continue using daily bowel regimen to prevent constipation. Complete Home Medications List: Complete Home Medication List: Aspirin 325 mg PO DAILY 01/29/16 Atorvastatin Calcium 80 mg PO HS 01/29/16 Clopidogrel Bisulfate [Plavix] 75 mg PO DAILY 01/29/16 Finasteride [Proscar] 5 mg PO DAILY 01/29/16 Fluticasone/Salmeterol [Advair 250-50 Diskus] 1 puff IH BID 01/29/16 Gabapentin 300 mg PO TID 01/29/16 Insulin Aspart [Novolog] 15 units SC TID 01/29/16 Levothyroxine Sodium [Synthroid] 175 mcg PO DAILY 01/29/16 Metoclopramide HCl [Reglan] 5 mg PO QID 01/29/16 Omeprazole [Prilosec] 20 mg PO BID 01/29/16 Polyethylene Glycol 3350 [Gavilax] 17 gm PO DAILY 01/29/16 Umeclidinium [place] [Incruse Ellipta] 1 puff IH DAILY 01/29/16 rOPINIRole HCL [Requip] 2 mg PO HS 01/29/16 traMADol HCL [Ultram] 50 mg PO QID PRN 01/29/16 Insulin Glargine,Hum.rec.anlog [Lantus] 50 units SC HS #2 vial 01/31/16 Acetaminophen [Tylenol] 650 mg PO Q4H PRN 12/07/16 Albuterol Sulfate [Albuterol Sulfate 2.5 MG/3 ML] 2.5 mg IH Q6H PRN 12/07/16 Docusate Sodium [Colace] 200 mg PO HS PRN 12/07/16 Sennosides [Senna Lax] 2 tab PO BID PRN 12/07/16 Citalopram Hydrobromide [Citalopram HBr] 40 mg PO DAILY 01/05/17 HYDROcodone/ACETAMINOPHEN [[place] 5-325 Tablet] 5 - 325 mg PO QID PRN 01/05/17 Insulin Glargine,Hum.rec.anlog [Lantus Solostar] 50 unit SQ HS 01/05/17 Ipratropium [place] [Atrovent Hfa] 17 mcg IH QID PRN 01/05/17 Levalbuterol Tartrate [Xopenex Hfa] 90 mcg IH Q8H PRN 01/05/17 Losartan Potassium [Cozaar] 50 mg PO DAILY 01/05/17 Mometasone Furoate [Nasonex] 2 spray NS DAILY 01/05/17 Levofloxacin [Levaquin] 750 mg PO DAILY #7 tab 01/06/17
[2016-12-08 14:54] VITALS: BP 143/72
[2016-12-08] MEDS ORDERED: ROSUVASTATIN CALCIUM 10 MG TABLET PO SCH (21:00)
[2016-12-08] MEDS ORDERED: ATORVASTATIN CALCIUM 40 MG TABLET PO SCH (21:00)
[2016-12-08] MEDS ORDERED: rOPINIRole HCL 1 MG TABLET PO SCH (21:00)
[2016-12-09] MEDS ORDERED: POLYETHYLENE GLYCOL 3350 119 GM BTL PO SCH (09:00)
== END 2016-12-08 15:00 | disposition home or self-care (01) ==
LOC: ER 18:24 → MS 20:44
PROVIDERS: ADMIT Nurse Practitioner; ATTEND Family Medicine
DX: K59.00 Constipation, unspecified (principal); E11.649 Type 2 diabetes mellitus with hypoglycemia without coma; Z79.4 Long term (current) use of insulin; J44.9 Chronic obstructive pulmonary disease, unspecified; Z87.891 Personal history of nicotine dependence
CPT/HCPCS: 36415; 71010; 74020; 80053; 83605; 83880; 84484; 85025; 93005; 94640; 94760; 96372; 99284; G0378

== ENCOUNTER 2016-12-21 22:24 | Emergency (ER) | payer MEDICARE, OTHER ==
[2016-12-21 23:33] LABS: Hematocrit 30.1 % (42.0-52.0); Hemoglobin 8.9 gm/dL (13.5-18.0); Mean Cell Volume 70.5 fl (78-100); Mean Corpuscular Hemoglobin 20.8 pg (27-31); Mean Corpuscular Hgb Conc 29.6 g/dl (32-36); Mean Platelet Volume 8.4 fl (6.0-9.5); Neutrophil # 6.4 K/mm3 (1.3-6.0); Neutrophil % 71.4 % (42-75.0); Platelet Count 353 K/mm3 (150-450); Red Blood Count 4.27 M/mm3 (4.7-6.0); Red Cell Distribution Width 16.1 % (11.5-14.0)
--- NOTE | 2016-12-21 23:36 | ERNOTE ---
Medical Problem HPI - General Chief Complaint: Diabetes Related Problem Time Seen by Provider: 12/21/16 22:30 Source: patient, EMS Exam Limitations: clinical condition - Immun/Allergies/Home Medications Immunizations: IMMUNIZATION HX Immunizations Up to Date Yes History of Influenza Vaccine No Hx Pneumococcal Vaccination No Allergies/Adverse Reactions: Allergies lisinopril Allergy (Severe, Verified 12/21/16 22:33) Swelling of Tongue penicillin G Allergy (Mild, Verified 12/21/16 22:33) Hives Home Medications: HOME MEDICATIONS Aspirin 325 mg PO DAILY 01/29/16 [Last Taken Unknown] Atorvastatin Calcium 80 mg PO HS 01/29/16 [Last Taken Unknown] Clopidogrel Bisulfate [Plavix] 75 mg PO DAILY 01/29/16 [Last Taken Unknown] Finasteride [Proscar] 5 mg PO DAILY 01/29/16 [Last Taken Unknown] Fluticasone/Salmeterol [Advair 250-50 Diskus] 1 puff IH BID 01/29/16 [Last Taken Unknown] Gabapentin 300 mg PO TID 01/29/16 [Last Taken Unknown] Insulin Aspart [Novolog] 15 units SC TID 01/29/16 [Last Taken Unknown] Ipratropium [place] [Atrovent] 1 vial IH Q6H PRN 01/29/16 [Last Taken Unknown] Levalbuterol Tartrate [Xopenex Hfa] 2 puff IH Q8H PRN 01/29/16 [Last Taken Unknown] Levothyroxine Sodium [Synthroid] 175 mcg PO DAILY 01/29/16 [Last Taken Unknown] Metoclopramide HCl [Reglan] 5 mg PO QID 01/29/16 [Last Taken Unknown] Omeprazole [Prilosec] 20 mg PO BID 01/29/16 [Last Taken Unknown] Polyethylene Glycol 3350 [Gavilax] 17 gm PO DAILY 01/29/16 [Last Taken Unknown] Umeclidinium [place] [Incruse Ellipta] 1 puff IH DAILY 01/29/16 [Last Taken Unknown] rOPINIRole HCL [Requip] 2 mg PO HS 01/29/16 [Last Taken Unknown] traMADol HCL [Ultram] 50 mg PO QID PRN 01/29/16 [Last Taken Unknown] Insulin Glargine,Hum.rec.anlog [Lantus] 50 units SC HS #2 vial 01/31/16 [Last Taken Unknown] Acetaminophen [Tylenol] 650 mg PO Q4H PRN 12/07/16 [Last Taken Unknown] Albuterol Sulfate [Albuterol Sulfate 2.5 MG/3 ML] 2.5 mg IH Q6H PRN 12/07/16 [ Last Taken Unknown] Docusate Sodium [Colace] 100 mg PO HS PRN 12/07/16 [Last Taken Unknown] HYDROcodone/ACETAMINOPHEN [[place] 5-325 Tablet] 1 tab PO Q6H PRN 12/07/16 [Last Taken Unknown] Mometasone Furoate [Nasonex] 2 spray NS DAILY 12/07/16 [Last Taken Unknown] Sennosides [Senna Lax] 2 tab PO BID PRN 12/07/16 [Last Taken Unknown] - History of Present History Narrative: Pt was confused at home, EMS found blood sugar in the 40's. they gave one amp of D50. Pt was more awake and alert upon arrival. States that he does not have glucometer strips at home Timing: constant Severity: moderate Review of Systems - Review of Systems Constitutional: Absent: recent illness EYE: Absent: vision changes ENT: Present: no symptoms reported Respiratory: Present: no symptoms reported Cardiology: Present: no symptoms reported Gastrointestinal/Abdominal: Present: no symptoms reported Genitourinary: Present: no symptoms reported Musculoskeletal: Present: no symptoms reported Skin: Present: no symptoms reported Neurological: Present: dizziness/light-headedness Endocrine: Present: See HPI, excessive sweating, flushing Hematologic/Lymphatic: Present: no symptoms reported Psych: Present: no symptoms reported - Patient's Past Medical History Patient History - Medical: Arthritis, Cataracts, Diabetes Type 2, Depression, GERD, Hypothyroidism Patient History - Cardiac/Respiratory: Coronary Heart Disease, COPD, Hypertension, Hyperlipidemia, Myocardial Infarction Patient History - Cancer: No Hx of Cancer Patient History - Surgical Procedures: Appendectomy, Cataracts, Total Hip Replacement Patient History - Other: None - Family History Father Family History - Medical: Family History - Cardiac/Respiratory: Hypertension Mother Family History - Medical: , Diabetes Type 2 Family History - Cardiac/Respiratory: Coronary Heart Disease - Social History Living Situations: home Abuse History: No History of abuse Psych History: Hx of Depression Does anyone smoke in the home?: No Smoking Status: Former smoker Alcohol Use: none Drug Use: none - Immunizations Immunizations Up to Date: Yes Hx Pneumococcal Vaccination: No History of Influenza Vaccine: No Physical Exam - Physical Exam General Appearance: Present: mild distress, lethargic, obese Eye Exam: Normal inspection: bilateral Neck: Present: nontender, supple Respiratory: Present: no respiratory distress, no accessory muscle use Cardiovascular/Chest: Present: regular rate, rhythm, no murmur Gastrointestinal/Abdominal: Present: normal bowel sounds, nontender, soft Back Exam: Present: normal inspection, normal range of motion Extremity Exam: Present: non-tender, normal range of motion Neurological Exam: Present: no motor/sensory deficits Skin Exam: Present: normal color, warm/dry ED Progress - Results and Orders Patient's Lab Results:: I have reviewed the patient's lab results. Results and Orders: Laboratory Tests 12/21/16 12/21/16 23:30 23:30 WBC 9.0 Hgb 8.9 L Hct 30.1 L Plt Count 353 Sodium 132 Potassium 4.2 Chloride 97 Carbon Dioxide 30.0 Anion Gap 9.2 BUN 27 H Creatinine 0.96 Est GFR (Non-Af Amer) 81 D BUN/Creatinine Ratio 28.1 H Random Glucose 90 Calcium 8.9 Calcium Adj for Albumin 9.3 Total Bilirubin 0.2 AST 29 ALT 30 Alkaline Phosphatase 129 Total Protein 8.0 Albumin 3.1 L - Vital Signs Patient's Vital Signs:: I have reviewed the patient's vital signs. Vital Signs: Vital Signs 12/21/16 12/21/16 12/21/16 22:28 22:38 23:27 Temperature 36.3 C L Pulse Rate 64 61 55 L Respiratory 16 16 Rate Blood Pressure 154/89 O2 Sat by Pulse 97 96 Oximetry - Progress/Reassessment Chief Complaint: Diabetes Related Problem Departure - Departure Clinical Impression: Hypoglycemia Diabetes mellitus Qualifiers: Diabetes mellitus type: type 2 Diabetes mellitus complication status: with hypoglycemia Diabetes mellitus complication detail: without coma Diabetes mellitus terminal manager insulin use: with jail use Qualified Code(s): E11.649 - Type 2 diabetes mellitus with hypoglycemia without coma Disposition: Home Follow Up Needed Condition: Good Instructions: Hypoglycemia, [id number] Additional Instructions: follow up with his regular doctor as needed.
[2016-12-21 23:50] LABS: Albumin * 3.1 gm/dl (3.4-5.0); Anion Gap 9.2 mmol/L (6.8-13.8); BUN/Creatinine Ratio 28.1 (9.0-21.6); Calcium * 8.9 mg/dL (7.9-10.9); Potassium 4.2 mmol/L (3.4-4.6)
[2016-12-21 23:51] LABS: Bilirubin, Total 0.2 mg/dL (0.0-1.1); Ca. Corrected For Albumin 9.3 mg/dL (8.4-10.2)
--- OUTSIDE RECORDS SUMMARY | 2016-12-22 00:03 | XMS REPORT | Continuity of Care Document ---
:1940 Author Organization [facility] ([facility]) Address [address] [place] [address] Phone [phone] Care Team Providers Name Role Phone Wilfrid Casiano Primary Care Provider [phone] Source Comments This disclosure is being made pursuant to the Care Everywhere program, applicable federal and state laws, and may not contain all informaitonavailable regarding this patient.[facility] (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
[2016-12-22 01:11] VITALS: BP 134/80
== END 2016-12-22 01:10 | disposition home or self-care (01) ==
LOC: ER 22:24
DX: E11.649 Type 2 diabetes mellitus with hypoglycemia without coma (principal); Z87.891 Personal history of nicotine dependence; I25.10 Atherosclerotic heart disease of native coronary artery without angina pectoris; I25.2 Old myocardial infarction

== ENCOUNTER 2017-01-05 03:14 | Observation (INO) | payer MEDICARE, OTHER ==
[2017-01-05 03:32] LABS: Hematocrit 27.9 % (42.0-52.0); Hemoglobin 8.4 gm/dL (13.5-18.0); Mean Cell Volume 68.2 fl (78-100); Mean Corpuscular Hemoglobin 20.5 pg (27-31); Mean Corpuscular Hgb Conc 30.1 g/dl (32-36); Mean Platelet Volume 9.1 fl (6.0-9.5); Neutrophil # 13.7 K/mm3 (1.3-6.0); Neutrophil % 77.9 % (42-75.0); Platelet Count 297 K/mm3 (150-450); Red Blood Count 4.09 M/mm3 (4.7-6.0); Red Cell Distribution Width 16.3 % (11.5-14.0); White Blood Count 17.6 K/mm3 (4.0-10.5)
--- OUTSIDE RECORDS SUMMARY | 2017-01-05 03:32 | XMS REPORT | Continuity of Care Document ---
:1940 Author Organization [facility] ([facility]) Address [address] [place] [address] Phone [phone] Care Team Providers Name Role Phone Wilfrid Casiano Primary Care Provider [phone] Source Comments This disclosure is being made pursuant to the Care Everywhere program, applicable federal and state laws, and may not contain all informaitonavailable regarding this patient.[facility] ([facility]) Active Allergies and Adverse Reactions [...] without complication 09/24/2015 Coronary artery disease involving [place] coronary artery of [place] heart 09/23 without angina pectoris Pulmonary emphysema [...] Taken Blood Pressure 161/71 09/29/2015 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
--- NOTE | 2017-01-05 03:37 | ERNOTE ---
Dyspnea - General Presenting Symptoms: shortness of breath Time Seen by Provider: 01/05/17 03:18 Source: patient Exam Limitations: no limitations - Immun/Allergies/Home Medications Immunizations: IMMUNIZATION HX Immunizations Up to Date doesn't know History of Influenza Vaccine No Hx Pneumococcal Vaccination No Allergies/Adverse Reactions: Allergies lisinopril Allergy (Severe, Verified 01/05/17 03:27) Swelling of Tongue penicillin G Allergy (Mild, Verified 01/05/17 03:27) Hives Home Medications: HOME MEDICATIONS Aspirin 325 mg PO DAILY 01/29/16 [Last Taken Unknown] Atorvastatin Calcium 80 mg PO HS 01/29/16 [Last Taken Unknown] Clopidogrel Bisulfate [Plavix] 75 mg PO DAILY 01/29/16 [Last Taken Unknown] Finasteride [Proscar] 5 mg PO DAILY 01/29/16 [Last Taken Unknown] Fluticasone/Salmeterol [Advair 250-50 Diskus] 1 puff IH BID 01/29/16 [Last Taken Unknown] Gabapentin 300 mg PO TID 01/29/16 [Last Taken Unknown] Insulin Aspart [Novolog] 15 units SC TID 01/29/16 [Last Taken Unknown] Levothyroxine Sodium [Synthroid] 175 mcg PO DAILY 01/29/16 [Last Taken Unknown] Metoclopramide HCl [Reglan] 5 mg PO QID 01/29/16 [Last Taken Unknown] Omeprazole [Prilosec] 20 mg PO BID 01/29/16 [Last Taken Unknown] Polyethylene Glycol 3350 [Gavilax] 17 gm PO DAILY 01/29/16 [Last Taken Unknown] Umeclidinium [place] [Incruse Ellipta] 1 puff IH DAILY 01/29/16 [Last Taken Unknown] rOPINIRole HCL [Requip] 2 mg PO HS 01/29/16 [Last Taken Unknown] traMADol HCL [Ultram] 50 mg PO QID PRN 01/29/16 [Last Taken Unknown] Insulin Glargine,Hum.rec.anlog [Lantus] 50 units SC HS #2 vial 01/31/16 [Last Taken Unknown] Acetaminophen [Tylenol] 650 mg PO Q4H PRN 12/07/16 [Last Taken Unknown] Albuterol Sulfate [Albuterol Sulfate 2.5 MG/3 ML] 2.5 mg IH Q6H PRN 12/07/16 [ Last Taken Unknown] Docusate Sodium [Colace] 100 mg PO HS PRN 12/07/16 [Last Taken Unknown] Sennosides [Senna Lax] 2 tab PO BID PRN 12/07/16 [Last Taken Unknown] Citalopram Hydrobromide [Citalopram HBr] 40 mg PO DAILY 01/05/17 [Last Taken Unknown] HYDROcodone/ACETAMINOPHEN [[place] 5-325 Tablet] 5 - 325 mg PO QID PRN 01/05/17 [ Last Taken Unknown] Ipratropium [place] [Atrovent Hfa] 17 mcg IH QID PRN 01/05/17 [Last Taken Unknown] Losartan Potassium [Cozaar] 50 mg PO DAILY 01/05/17 [Last Taken Unknown] Mometasone Furoate [Nasonex] 2 spray NS DAILY 01/05/17 [Last Taken Unknown] - History of Present Illness Narrative: Patient started to become short of breath in the afternoon. His symptoms continued to increase till it got to the point that he called EMS to take him to the hospital. En route he received albuterol and is feeling better now. He has chronic cough with white sputum at baseline, no fever, no chest pain. he has a history of COPD and CAD. About a month ago he was admitted for shortness of breath as a chest pain equivalent. Date (Duration): 01/04/17 Time (Timing): 16:00 Treatment [employer]: paramedics, albuterol Review of Systems - Review of Systems Constitutional: Absent: recent illness, fever ENT: Absent: nose pain, nose congestion, sore throat Respiratory: Present: See HPI, shortness of breath, cough Cardiology: Absent: chest pain Gastrointestinal/Abdominal: Absent: nausea, vomiting, diarrhea, abdominal pain Genitourinary: Present: no symptoms reported Neurological: Absent: headache, weakness, numbness - Patient's Past Medical History Patient History - Medical: Arthritis, Cataracts, Diabetes Type 2, Depression, GERD, Hypothyroidism Patient History - Cardiac/Respiratory: Coronary Heart Disease, COPD, Hypertension, Hyperlipidemia, Myocardial Infarction Patient History - Cancer: No Hx of Cancer Patient History - Surgical Procedures: Appendectomy, Cataracts, Coronary Bypass Surgery, Total Hip Replacement Patient History - Other: None - Family History Father Family History - Medical: Family History - Cardiac/Respiratory: Hypertension Mother Family History - Medical: , Diabetes Type 2 Family History - Cardiac/Respiratory: Coronary Heart Disease - Social History Living Situations: home Abuse History: No History of abuse Psych History: Hx of Depression Does anyone smoke in the home?: No Smoking Status: Former smoker Alcohol Use: none Drug Use: none - Immunizations Immunizations Up to Date: - doesn't know Hx Pneumococcal Vaccination: No History of Influenza Vaccine: No Physical Exam - Physical Exam General Appearance: Present: wd/wn, alert, no apparent distress Eye Exam: Normal inspection: bilateral, PERRL: bilateral Ears, Nose, Throat: Present: normal pharynx Respiratory: Present: no respiratory distress, no accessory muscle use, decreased breath sounds, expiration (prolonged), wheezing Cardiovascular/Chest: Present: regular rate, rhythm, no murmur Gastrointestinal/Abdominal: Present: normal bowel sounds, nontender, soft, distended Neurological Exam: Present: alert, oriented, normal mood/affect Skin Exam: Present: warm/dry, pallor ED Progress - Results and Orders Patient's Lab Results:: I have reviewed the patient's lab results. - Vital Signs Patient's Vital Signs:: I have reviewed the patient's vital signs. - O2 sat 89- 90 on RA Vital Signs: Vital Signs 01/05/17 03:17 Temperature 36.9 C Pulse Rate 85 Respiratory 17 Rate Blood Pressure 131/69 O2 Sat by Pulse 90 Oximetry - EKG EKG: NSR, RBBB - incomplete, unchanged from - 12/08/2016, other - first degree AV block EKG read: Interp. by me - X-Ray X-Ray #1 X-Ray: chest - chronic changes, new left upper lobe infiltrate Interpretation: Interp. by me - Progress/Reassessment Chief Complaint: Dyspnea Progress Note-Subjective: 01/05/17 04:23 discussed results with patient and family, suggested admission for pneumonia, patient agreed anemia stable since last admission 01/05/17 04:24 discussed with Adilene Baumann,okay to admit, continue just levaquin for now. pneumonia score 97,class IV Departure Clinical Impression: Hyponatremia Pneumonia Qualifiers: Pneumonia type: due to unspecified organism Laterality: left Lung location: upper lobe of lung Qualified Code(s): J18.1 - Lobar pneumonia, unspecified organism Anemia Qualifiers: Anemia type: unspecified type Qualified Code(s): D64.9 - Anemia, unspecified COPD (chronic obstructive pulmonary disease) Qualifiers: COPD type: unspecified COPD Qualified Code(s): J44.9 - Chronic obstructive pulmonary disease, unspecified - Departure Disposition: [facility] Condition: Good
[2017-01-05 04:09] LABS: ALT 27 U/L (19-67); AST 29 U/L (0-48); Albumin * 2.9 gm/dl (3.4-5.0); Alkaline Phosphatase * 120 U/L (50-170); BNP * 215 pg/mL (5-650); BUN/Creatinine Ratio 21.3 (9.0-21.6); Bilirubin, Total 0.3 mg/dL (0.0-1.1); Blood Urea Nitrogen 23 mg/dL (6-23); Calcium * 8.4 mg/dL (7.9-10.9); Carbon Dioxide 30.7 mmol/L (24-32.6); Chloride 95 mmol/L (97-106); Glucose * 174 mg/dL (70-110); Potassium 4.7 mmol/L (3.4-4.6); Sodium 126 mmol/L (132-142); Total Protein 7.5 gm/dL (6.2-8.2)
[2017-01-05] MEDS ORDERED: ALBUTEROL SULFATE 2.5 MG/3 ML VIAL.NEB IH ONE (04:21)
[2017-01-05] MEDS ORDERED: ALBUTEROL SULFATE 2.5 MG/0.5 ML VIAL.NEB IH ONE (04:23)
[2017-01-05] MEDS ORDERED: LEVOFLOXACIN/D5W 750 MG/150 ML BAG IV ONE (04:23)
[2017-01-05 04:35] LABS: Troponin I Less than 0.017 ng/ml (0.00-0.10)
--- OUTSIDE RECORDS SUMMARY | 2017-01-05 04:38 | XMS REPORT | Continuity of Care Document ---
:1940 Author Organization [facility] ([facility]) Address [address] [place] [address] Phone [phone] Care Team Providers Name Role Phone Wilfrid Casiano Primary Care Provider [phone] Source Comments This disclosure is being made pursuant to the Care Everywhere program, applicable federal and state laws, and may not contain all informaitonavailable regarding this patient.[facility] ([facility]) Active Allergies and Adverse Reactions Allergen [...] without complication 09/24/2015 Coronary artery disease involving [place] coronary artery of [place] heart 09/23 without angina pectoris Pulmonary emphysema [...] Taken Blood Pressure 161/71 09/29/2015 8:00 AM ALUMNI COORDINATOR Pulse 79 09/29/2015 8:00 AM ALUMNI COORDINATOR Temperature 35.7 C (96.3 F) 09/29/2015 8:00 AM ALUMNI COORDINATOR Respiratory Rate 20 09/29/2015 12:00 PM ALUMNI COORDINATOR Height 1.778 m (5' 10") 09/24/2015 11:30 PM ALUMNI COORDINATOR Weight 90 kg (198 lb 6.6 oz) 09/28/2015 4:00 PM ALUMNI COORDINATOR Body Mass Index 28.47 09/28/2015 4:00 PM ALUMNI COORDINATOR Oxygen Saturation 96% 09/29/2015 8:00 AM ALUMNI COORDINATOR Plan of Care Health Maintenance Due Date [...]
[2017-01-05] MEDS ORDERED: ACETAMINOPHEN 325 MG TABLET PO PRN ×2 (04:41→09:21)
--- NOTE | 2017-01-05 04:52 | HP ---
Chief Complaint - Chief Complaint Date of Service: 01/05/17 Time of Service: 04:50 Chief Complaint: " SOB, Weakness". Source of HPI- Pt; reliable, ER provider report, Pt's EMR. History of Present Illness: Mr. Ca is a 76-yr-old WM pt of Dr. Wilfrid Casiano with a PMH of:Asthma, CAD, Constipation, COPD, DM II, GERD & Hypothyroidism. Pt reports that he woke up last night feeling extremely SOB & Weak. He lives with his grandson who called the EMS for him as he 'could not catch his breath.' Pt states that he normally feels SOB due to his COPD, but last night's episode was worse. He reports having increasing cough and he brings up thick marshall phlegm. He denies having fevers or chills. He usually tolerates lying in a flat position. He denies N/V, Diarrhea, Abdominal pain and chest pain or pressure. At the ED, the CBC showed he an elevated WBC of 17,600 with a left shift. He was febrile also with a temp of 38.2 and required oxygen supplementation to keep SPO2 > 90%. The CXR had findings concerning for Pneumonia. Pt will be admitted under observation status for CAP. - Patient's Past Medical History Patient History - Medical: Arthritis, Cataracts, Diabetes Type 2, Depression, GERD, Hypothyroidism Patient History - Cardiac/Respiratory: Asthma, Coronary Heart Disease, COPD, Hypertension, Hyperlipidemia, Myocardial Infarction Patient History - Cancer: No Hx of Cancer Patient History - Surgical Procedures: Appendectomy, Cataracts, Coronary Bypass Surgery, Total Hip Replacement Patient History - Other: None - Family History Father Family History - Medical: Family History - Cardiac/Respiratory: Hypertension Mother Family History - Medical: , Diabetes Type 2 Family History - Cardiac/Respiratory: Coronary Heart Disease - Social History Living Situations: home Abuse History: No History of abuse Psych History: Hx of Depression Does anyone smoke in the home?: No Smoking Status: Former smoker Alcohol Use: none Drug Use: none - Immunizations Immunizations Up to Date: - doesn't know Hx Pneumococcal Vaccination: No History of Influenza Vaccine: No Review Of Systems (GEN) - Review of Systems Generalized/Overall Review: Present: Weakness, Malaise. Absent: Chills, Fever EENTM: Absent: Eye Pain, Blurred Vision, Tearing Respiratory: Present: Cough, Shortness of Breath, Wheezing Cardiac: Absent: Chest Pain, Edema, Palpitations Abdominal: Absent: Nausea, Vomiting, Hematemesis, Abdominal Pain, Constipation, Diarrhea Genitourinary: Absent: Burning, Urgency, Frequency, Hematuria Musculoskeletal: Present: Back Pain. Absent: Joint Pain, Joint Swelling Neurological: Present: Weakness. Absent: Headache, Anxiety, Depressed, Emotional Problems, Numbness Skin: Present: Dryness, Bruising Endocrine: Absent: Intolerance to Cold, Increased Hunger, Increased Thirst Misc: All systems neg except as marked Immunizations: IMMUNIZATION HX Immunizations Up to Date doesn't know History of Influenza Vaccine No Hx Pneumococcal Vaccination No Allergies/Adverse Reactions: Allergies Allergy/AdvReac Type Severity Reaction Status Date / Time lisinopril Allergy Severe Swelling Verified 01/05/17 05:26 of Tongue penicillin G Allergy Mild Hives Verified 01/05/17 05:26 Home Medications: HOME MEDICATIONS Aspirin 325 mg PO DAILY 01/29/16 [Last Taken Unknown] Atorvastatin Calcium 80 mg PO HS 01/29/16 [Last Taken Unknown] Clopidogrel Bisulfate [Plavix] 75 mg PO DAILY 01/29/16 [Last Taken Unknown] Finasteride [Proscar] 5 mg PO DAILY 01/29/16 [Last Taken Unknown] Fluticasone/Salmeterol [Advair 250-50 Diskus] 1 puff IH BID 01/29/16 [Last Taken Unknown] Gabapentin 300 mg PO TID 01/29/16 [Last Taken Unknown] Insulin Aspart [Novolog] 15 units SC TID 01/29/16 [Last Taken Unknown] Levothyroxine Sodium [Synthroid] 175 mcg PO DAILY 01/29/16 [Last Taken Unknown] Metoclopramide HCl [Reglan] 5 mg PO QID 01/29/16 [Last Taken Unknown] Omeprazole [Prilosec] 20 mg PO BID 01/29/16 [Last Taken Unknown] Polyethylene Glycol 3350 [Gavilax] 17 gm PO DAILY 01/29/16 [Last Taken Unknown] Umeclidinium [place] [Incruse Ellipta] 1 puff IH DAILY 01/29/16 [Last Taken Unknown] rOPINIRole HCL [Requip] 2 mg PO HS 01/29/16 [Last Taken Unknown] traMADol HCL [Ultram] 50 mg PO QID PRN 01/29/16 [Last Taken Unknown] Insulin Glargine,Hum.rec.anlog [Lantus] 50 units SC HS #2 vial 01/31/16 [Last Taken Unknown] Acetaminophen [Tylenol] 650 mg PO Q4H PRN 12/07/16 [Last Taken Unknown] Albuterol Sulfate [Albuterol Sulfate 2.5 MG/3 ML] 2.5 mg IH Q6H PRN 12/07/16 [ Last Taken Unknown] Docusate Sodium [Colace] 200 mg PO HS PRN 12/07/16 [Last Taken Unknown] Sennosides [Senna Lax] 2 tab PO BID PRN 12/07/16 [Last Taken Unknown] Citalopram Hydrobromide [Citalopram HBr] 40 mg PO DAILY 01/05/17 [Last Taken Unknown] HYDROcodone/ACETAMINOPHEN [[place] 5-325 Tablet] 5 - 325 mg PO QID PRN 01/05/17 [ Last Taken Unknown] Insulin Glargine,Hum.rec.anlog [Lantus Solostar] 50 unit SQ HS 01/05/17 [Last Taken Unknown] Ipratropium [place] [Atrovent Hfa] 17 mcg IH QID PRN 01/05/17 [Last Taken Unknown] Levalbuterol Tartrate [Xopenex Hfa] 90 mcg IH Q8H PRN 01/05/17 [Last Taken Unknown] Losartan Potassium [Cozaar] 50 mg PO DAILY 01/05/17 [Last Taken Unknown] Mometasone Furoate [Nasonex] 2 spray NS DAILY 01/05/17 [Last Taken Unknown] Exam - Exam Vital Signs: Vital Signs - Last Taken Temp 38.2 C H 01/05/17 04:36 Pulse 88 01/05/17 04:36 Resp 22 H 01/05/17 04:36 BP 166/69 01/05/17 04:36 Pulse Ox 94 01/05/17 04:36 Constitutional: Present: Alert, Oriented x3, Cooperative, No distress ENT Exam: Present: normal ENT inspection, hearing grossly normal, dry mucous membranes Eye Exam: bilateral eye: normal inspection, PERRL Neck: Present: full range of motion, supple, normal inspection Back Exam: Present: normal inspection, no CVA tenderness Respiratory: Present: rhonchi, No wheezing Cardiovascular/Chest: Present: normal peripheral pulses, regular rate, rhythm, no chest tenderness, no murmur Abdomen: Present: Normal bowel sounds, soft, nontender /Rectal: Present: Exam deferred Extremity: Present: normal range of motion, non-tender, normal inspection Skin Exam: Present: no cyanosis, other - Hyperpigmentation on BLE. Lymphatic: Present: no adenopathy Neurologic: Present: no motor/sensory deficits, alert, normal mood/affect, oriented x 3 Appearance: Present: appropriate appearance, appropriate insight Eye contact: Present: cooperative, good eye contact, normal speech Thoughts: Present: normal thought pattern, no apparent hallucination Diagnostic Studies: Laboratory Results WBC 17.6 K/mm3 (4.0-10.5) H 01/05/17 03:31 RBC 4.09 M/mm3 (4.7-6.0) L 01/05/17 03:31 Hgb 8.4 gm/dL (13.5-18.0) L 01/05/17 03:31 Hct 27.9 % (42.0-52.0) L 01/05/17 03:31 MCV 68.2 fl (78-100) L 01/05/17 03:31 MCH 20.5 pg (27-31) L 01/05/17 03:31 MCHC 30.1 g/dl (32-36) L 01/05/17 03:31 RDW 16.3 % (11.5-14.0) H 01/05/17 03:31 Plt Count 297 K/mm3 (150-450) 01/05/17 03:31 MPV 9.1 fl (6.0-9.5) 01/05/17 03:31 Immature Gran % (Auto) 0.40 % (0.001-0.429) 01/05/17 03:31 Immature Gran # (Auto) 0.07 K/mm3 (0.000-0.0310) H 01/05/17 03:31 Neutrophils % 77.9 % (42-75.0) H 01/05/17 03:31 Lymphocytes % 12.1 % (20-51) L 01/05/17 03:31 Monocytes % 8.6 % (0.0-9) 01/05/17 03:31 Eosinophils % 0.6 % (0.0-3.0) 01/05/17 03:31 Basophils % 0.4 % (0.0-1.0) 01/05/17 03:31 Nucleated RBC % 0.0 k/mm3 (0-1) 01/05/17 03:31 Neutrophils # 13.7 K/mm3 (1.3-6.0) H 01/05/17 03:31 Lymphocytes # 2.1 k/mm3 (1.5-3.5) 01/05/17 03:31 Monocytes # 1.5 k/mm3 (0.0-1.0) H 01/05/17 03:31 Eosinophils # 0.1 k/mm3 (0.0-0.7) 01/05/17 03:31 Absolute Basophils 0.1 k/mm3 (0.0-0.1) 01/05/17 03:31 Sodium 126 mmol/L (132-142) L 01/05/17 03:31 Plasma Sodium 127 mmol/L (130-142) L 01/05/17 03:31 Potassium 4.7 mmol/L (3.4-4.6) H 01/05/17 03:31 Chloride 95 mmol/L (97-106) L 01/05/17 03:31 Carbon Dioxide 30.7 mmol/L (24-32.6) 01/05/17 03:31 Anion Gap 5.0 mmol/L (6.8-13.8) L 01/05/17 03:31 BUN 23 mg/dL (6-23) 01/05/17 03:31 Creatinine 1.08 mg/dL (0.4-1.4) 01/05/17 03:31 Est GFR (Non-Af Amer) 70 mL/min (60-130) 01/05/17 03:31 BUN/Creatinine Ratio 21.3 (9.0-21.6) 01/05/17 03:31 Random Glucose 174 mg/dL (70-110) H 01/05/17 03:31 Calcium 8.4 mg/dL (7.9-10.9) 01/05/17 03:31 Calcium Adj for Albumin 9.0 mg/dL (8.4-10.2) 01/05/17 03:31 Total Bilirubin 0.3 mg/dL (0.0-1.1) 01/05/17 03:31 AST 29 U/L (0-48) 01/05/17 03:31 ALT 27 U/L (19-67) 01/05/17 03:31 Alkaline Phosphatase 120 U/L (50-170) 01/05/17 03:31 Troponin I Less than 0.017 ng/ml (0.00-0.10) 01/05/17 03:31 B-Natriuretic Peptide 215 pg/mL (5-650) 01/05/17 03:31 Total Protein 7.5 gm/dL (6.2-8.2) 01/05/17 03:31 Albumin 2.9 gm/dl (3.4-5.0) L 01/05/17 03:31 Assessment/Plan - Assessment/Plan (1) Pneumonia Assessment: Pt presented clinical features associated with CAP: SOB, Fevers, cough, Leukocytosis and CXR had findings concerning for Pneumonia. Blood and sputum cultures are pending. Started on Levaquin due to hx of COPD. Check urine antigent test for Strep Pneumo and Legionella. Encourage coughing and deep breathing and [place] q 2 hrs. Monitor CBC . Problem: Acute Qualifiers: Pneumonia type: due to unspecified organism Laterality: left Lung location: upper lobe of lung Qualified Code(s): J18.1 - Lobar pneumonia, unspecified organism (2) Electrolyte imbalance Assessment: Na 126 and K of 5.0. Provide IVF hydration. Monitor BMP in am. Problem: Acute (3) Constipation Assessment: He is noted to have abdominal distention. I suspect stool retention due to hx of constipation. Consider Abdominal X-ray to ensure there is in no obstruction, and give stool laxative stimulants. Problem: Acute (4) Diabetes mellitus Assessment: Continue Lantus and mealtime insulin. Accu- Checks ACHS. Problem: Chronic Qualifiers: Diabetes mellitus type: type 2 Diabetes mellitus complication status: with hypoglycemia Diabetes mellitus complication detail: without coma Diabetes mellitus intermediate designer insulin use: with fpc use Qualified Code(s): E11.649 - Type 2 diabetes mellitus with hypoglycemia without coma; Z79.4 - detention ( current) use of insulin (5) COPD (chronic obstructive pulmonary disease) Problem: Chronic (6) GERD (gastroesophageal reflux disease) Problem: Chronic
[2017-01-05] MEDS ORDERED: ALBUTEROL SULFATE 2.5 MG/3 ML VIAL.NEB IH PRN (05:08)
[2017-01-05] MEDS: NORMAL SALINE 1,000 ML IV PRN ×3 (05:37→22:48)
[2017-01-05] MEDS ORDERED: BISACODYL 10 MG SUPP.RECT RC ONE (06:58)
[2017-01-05] MEDS ORDERED: POLYETHYLENE GLYCOL 3350 119 GM BTL PO SCH (09:00)
[2017-01-05] MEDS ORDERED: SENNOSIDES 8.6 MG TABLET PO PRN ×2 (09:21→11:32)
[2017-01-05] MEDS ORDERED: DOCUSATE SODIUM 100 MG CAPSULE PO PRN (09:21)
[2017-01-05] MEDS: FLUTICASONE/SALMETEROL 14 PUFF DISK.W.DEV IH SCH ×2 (10:30→21:01)
[2017-01-05] MEDS: POLYETHYLENE GLYCOL 3350 119 GM BTL PO SCH (10:30)
[2017-01-05] MEDS: LEVOTHYROXINE SODIUM 175 MCG TABLET PO SCH (10:31)
[2017-01-05] MEDS: FINASTERIDE 5 MG TABLET PO SCH (10:31)
[2017-01-05] MEDS: CLOPIDOGREL BISULFATE 75 MG TABLET PO SCH (10:31)
[2017-01-05] MEDS: SENNOSIDES 8.6 MG TABLET PO SCH (10:32)
[2017-01-05] MEDS: LOSARTAN POTASSIUM 50 MG TABLET PO SCH (10:32)
[2017-01-05] MEDS: INSULIN LISPRO 100 UNITS/ML VIAL SC SCH ×2 (11:45→16:49)
[2017-01-05] MEDS: GABAPENTIN 300 MG CAPSULE PO SCH ×2 (13:29→21:02)
[2017-01-05] MEDS: METOCLOPRAMIDE HCL 5 MG TABLET PO SCH ×3 (13:29→21:02)
[2017-01-05] MEDS: ALBUTEROL SULFATE 2.5 MG/3 ML VIAL.NEB IH PRN ×2 (15:09→21:09)
[2017-01-05] MEDS: ROSUVASTATIN CALCIUM 10 MG TABLET PO SCH (21:01)
[2017-01-05] MEDS: PANTOPRAZOLE SODIUM 20 MG TABLET.DR PO SCH (21:02)
[2017-01-05] MEDS: rOPINIRole HCL 1 MG TABLET PO SCH (21:02)
[2017-01-05] MEDS: INSULIN GLARGINE,HUM.REC.ANLOG 100 UNITS/ML VIAL SC SCH (21:06)
[2017-01-06] MEDS: ALBUTEROL SULFATE 2.5 MG/3 ML VIAL.NEB IH PRN ×4 (02:53→22:24)
[2017-01-06] MEDS: LEVOFLOXACIN/D5W 750 MG/150 ML BAG IV SCH (04:11)
[2017-01-06 05:50] LABS: Hematocrit 25.1 % (42.0-52.0); Mean Cell Volume 68.6 fl (78-100); Mean Corpuscular Hemoglobin 20.5 pg (27-31); Mean Corpuscular Hgb Conc 29.9 g/dl (32-36); Mean Platelet Volume 8.8 fl (6.0-9.5); Neutrophil # 7.3 K/mm3 (1.3-6.0); Neutrophil % 73.6 % (42-75.0); Platelet Count 241 K/mm3 (150-450); Red Blood Count 3.66 M/mm3 (4.7-6.0); Red Cell Distribution Width 16.5 % (11.5-14.0)
[2017-01-06 05:53] LABS: Hemoglobin 7.5 gm/dL (13.5-18.0)
[2017-01-06 06:04] LABS: Anion Gap 7.7 mmol/L (6.8-13.8); BUN/Creatinine Ratio 19.5 (9.0-21.6); Calcium * 8.2 mg/dL (7.9-10.9); Carbon Dioxide 29.5 mmol/L (24-32.6); Estimated Creat Clear 73.4; Potassium 4.2 mmol/L (3.4-4.6)
[2017-01-06] MEDS: LEVOTHYROXINE SODIUM 175 MCG TABLET PO SCH (06:54)
[2017-01-06] MEDS: PANTOPRAZOLE SODIUM 20 MG TABLET.DR PO SCH ×2 (06:54→20:51)
[2017-01-06] MEDS: HYDROcodone/ACETAMINOPHEN 1 EACH TABLET PO PRN ×2 (06:54→18:23)
[2017-01-06] MEDS: GABAPENTIN 300 MG CAPSULE PO SCH ×3 (06:54→20:51)
[2017-01-06] MEDS: INSULIN LISPRO 100 UNITS/ML VIAL SC SCH ×3 (07:21→17:36)
[2017-01-06] MEDS: CITALOPRAM HYDROBROMIDE 20 MG TABLET PO SCH (08:31)
[2017-01-06] MEDS: LOSARTAN POTASSIUM 50 MG TABLET PO SCH (08:31)
[2017-01-06] MEDS: FINASTERIDE 5 MG TABLET PO SCH (08:31)
[2017-01-06] MEDS: ASPIRIN 325 MG TABLET.DR PO SCH (08:31)
[2017-01-06] MEDS: CLOPIDOGREL BISULFATE 75 MG TABLET PO SCH (08:31)
[2017-01-06] MEDS: METOCLOPRAMIDE HCL 5 MG TABLET PO SCH ×4 (08:31→20:51)
[2017-01-06] MEDS: SENNOSIDES 8.6 MG TABLET PO SCH (08:31)
[2017-01-06] MEDS: NON-FORMULARY 1 DOSE DOSE (Umeclidinium Bromide [Incruse Ellipta] 1 PUFF) IH SCH (08:31)
[2017-01-06] MEDS: MOMETASONE FUROATE 120 SPRAY INHALER NS SCH (08:34)
[2017-01-06] MEDS: POLYETHYLENE GLYCOL 3350 119 GM BTL PO SCH (08:34)
[2017-01-06] MEDS: FLUTICASONE/SALMETEROL 14 PUFF DISK.W.DEV IH SCH ×2 (08:35→20:49)
[2017-01-06] MEDS: NORMAL SALINE 1,000 ML IV PRN ×2 (09:58→20:00)
[2017-01-06] MEDS ORDERED: BISACODYL 10 MG SUPP.RECT RC ONE (11:00)
[2017-01-06] MEDS: ROSUVASTATIN CALCIUM 10 MG TABLET PO SCH (20:49)
[2017-01-06] MEDS: rOPINIRole HCL 1 MG TABLET PO SCH (20:51)
[2017-01-06] MEDS: INSULIN GLARGINE,HUM.REC.ANLOG 100 UNITS/ML VIAL SC SCH (20:55)
--- NOTE | 2017-01-07 00:16 | PN ---
Subjective - Date and Time Seen Date: 01/06/17 Time: 12:00 Subjective Narrative: Patient has not urinated since admission. Bladder scan showed 800ml. He does not have much of an urge to urinate. Denies shortness of breath, fever, chills, nausea, or vomiting. Objective - Vitals Vitals: Last Vital Signs Temp 36.4 C L 01/06/17 19:15 Pulse 70 01/06/17 22:32 Resp 20 01/06/17 22:32 BP 127/69 01/06/17 19:15 Pulse Ox 94 01/06/17 22:24 - Abnormal Lab Findings Abnormal Lab Findings: Abnormal Lab Results 01/06/17 01/06/17 Range/Units 05:48 05:48 RBC 3.66 L (4.7-6.0) M/mm3 Hgb 7.5 L* (13.5-18.0) gm/dL Hct 25.1 L (42.0-52.0) % MCV 68.6 L (78-100) fl MCH 20.5 L (27-31) pg MCHC 29.9 L (32-36) g/dl RDW 16.5 H (11.5-14.0) % Lymphocytes % 14.3 L (20-51) % Monocytes % 9.8 H (0.0-9) % Neutrophils # 7.3 H (1.3-6.0) K/mm3 Lymphocytes # 1.4 L (1.5-3.5) k/mm3 Sodium 130 L (132-142) mmol/L Random Glucose 235 H D (70-110) mg/dL - Exam Constitutional: Present: Alert, Oriented x3, Cooperative ENT Exam: Present: hearing grossly normal Respiratory: Present: lungs clear, normal breath sounds Cardiovascular/Chest: Present: regular rate, rhythm, no murmur Abdomen: Present: Normal bowel sounds, firm - large, round, and firm Skin Exam: Present: normal color, warm/dry, no cyanosis Assessment/Plan - Problems/Diagnosis (1) Pneumonia Problem: Acute Qualifiers: Pneumonia type: due to unspecified organism Laterality: left Lung location: upper lobe of lung Qualified Code(s): J18.1 - Lobar pneumonia, unspecified organism Narrative: Clinically doing well, off oxygen. WBC normalized. No significant shortness of breath. Continue Levaquin at discharge. (2) Urinary retention Problem: Acute Narrative: New onset, unable to urinate. Bladder scanner with 800ml. No significant discomfort or sensation of bladder fullness. Suspect related to stool retention. (3) Constipation Problem: Acute Qualifiers: Constipation type: unspecified constipation type Qualified Code(s): K59.00 - Constipation, unspecified Narrative: Given stool softeners, laxatives, suppository. Suspect improving constipation will improve urine retention secondary to intraabdominal pressure. (4) Hyponatremia Problem: Resolved (5) Anemia Problem: Chronic Qualifiers: Anemia type: unspecified type Qualified Code(s): D64.9 - Anemia, unspecified Narrative: No acute blood loss. Suspect chronic. Worsening secondary to dilution.
[2017-01-07] MEDS: LEVOFLOXACIN/D5W 750 MG/150 ML BAG IV SCH (04:20)
[2017-01-07 06:00] LABS: Mean Cell Volume 68.3 fl (78-100); Mean Corpuscular Hemoglobin 20.5 pg (27-31); Mean Platelet Volume 8.7 fl (6.0-9.5); Neutrophil # 4.4 K/mm3 (1.3-6.0); Neutrophil % 65.3 % (42-75.0); Platelet Count 238 K/mm3 (150-450); Red Blood Count 3.66 M/mm3 (4.7-6.0); Red Cell Distribution Width 16.5 % (11.5-14.0); White Blood Count 6.7 K/mm3 (4.0-10.5)
[2017-01-07 06:05] LABS: Hemoglobin 7.5 gm/dL (13.5-18.0)
[2017-01-07 06:08] LABS: Anion Gap 9.8 mmol/L (6.8-13.8); BUN/Creatinine Ratio 17.9 (9.0-21.6); Calcium * 8.3 mg/dL (7.9-10.9); Carbon Dioxide 29.2 mmol/L (24-32.6)
[2017-01-07] MEDS: LEVOTHYROXINE SODIUM 175 MCG TABLET PO SCH (06:43)
[2017-01-07] MEDS: PANTOPRAZOLE SODIUM 20 MG TABLET.DR PO SCH (06:43)
[2017-01-07] MEDS: GABAPENTIN 300 MG CAPSULE PO SCH ×2 (06:43→14:18)
[2017-01-07] MEDS: ALBUTEROL SULFATE 2.5 MG/3 ML VIAL.NEB IH PRN ×2 (06:49→12:30)
[2017-01-07] MEDS: NORMAL SALINE 1,000 ML IV PRN (07:05)
[2017-01-07] MEDS: INSULIN LISPRO 100 UNITS/ML VIAL SC SCH ×2 (07:42→12:38)
--- NOTE | 2017-01-07 09:14 | DS ---
(1) Pneumonia Diagnosis(s): WBC back to normal. discharge on oral Levaquin. Problem: Acute Qualifiers: Pneumonia type: due to unspecified organism Laterality: left Lung location: upper lobe of lung Qualified Code(s): J18.1 - Lobar pneumonia, unspecified organism (2) Electrolyte imbalance Diagnosis(s): Hyponatremia , resolved Problem: Resolved (3) Constipation Problem: Resolved Qualifiers: Constipation type: unspecified constipation type Qualified Code(s): K59.00 - Constipation, unspecified (4) Urinary retention Problem: Resolved (5) Anemia Problem: Chronic Qualifiers: Anemia type: unspecified type Qualified Code(s): D64.9 - Anemia, unspecified (6) COPD (chronic obstructive pulmonary disease) Problem: Chronic Qualifiers: COPD type: unspecified COPD Qualified Code(s): J44.9 - Chronic obstructive pulmonary disease, unspecified (7) GERD (gastroesophageal reflux disease) Problem: Chronic (8) Diabetes mellitus Problem: Chronic Qualifiers: Diabetes mellitus type: type 2 Diabetes mellitus complication status: with hypoglycemia Diabetes mellitus complication detail: without coma Diabetes mellitus custodial insulin use: with custodial use Qualified Code(s): E11.649 - Type 2 diabetes mellitus with hypoglycemia without coma; Z79.4 - custodial ( current) use of insulin Description of Stay: Salvador Ca is a 76-yr-old WM pt of Dr. Wilfrid Casiano with a PMH of:Asthma, CAD , Constipation, COPD, DM II, GERD & Hypothyroidism who was admitted on 01/05/17 for SOB and weakness. He woke up on the night before admission, feeling extremely SOB & Weak. He lives with his grandson who called the EMS for him as he 'could not catch his breath.' Pt states that he normally feels SOB due to his COPD, but last night's episode was worse. He reports having increasing cough and he brings up thick marshall phlegm. He denies having fevers or chills. He usually tolerates lying in a flat position. He denies N/V, Diarrhea, Abdominal pain and chest pain or pressure. At the ED, the CBC showed he an elevated WBC of 17,600 with a left shift. He was febrile also with a temp of 38.2 and required oxygen supplementation to keep SPO2 > 90%. The CXR had findings concerning for Pneumonia. Pt was admitted for Pneumonia and was started on IV antibiotics and breathing treatments. His WBC normalized. He was to be discharged but postponed as he developed urinary retention. This has resolved and he is stable to be discharged today. Procedures Performed: none Discharge Disposition: Home self care Disposition: Home self-care Condition: Good Discharge Activity: Activity as tolerated Discharge Diet: Consistent carbs Referrals: Wilfrid Casiano DO [Primary Care Provider] - One Week Problem Oriented Discharge Instructions to Patient/Family: Community-Acquired Pneumonia, Adult, [id number] Additional Patient Instructions (free text): Resume [facility] . Please fax orders and call report upon discharge. Follow up with PCP in 1 week.on 01-12-17 @ 11:15am. Prescriptions (Any new or edited meds): Levofloxacin [Levaquin] 750 mg PO DAILY #7 tab Complete Home Medications List: Complete Home Medication List: Aspirin 325 mg PO DAILY 01/29/16 Atorvastatin Calcium 80 mg PO HS 01/29/16 Clopidogrel Bisulfate [Plavix] 75 mg PO DAILY 01/29/16 Finasteride [Proscar] 5 mg PO DAILY 01/29/16 Fluticasone/Salmeterol [Advair 250-50 Diskus] 1 puff IH BID 01/29/16 Gabapentin 300 mg PO TID 01/29/16 Insulin Aspart [Novolog] 15 units SC TID 01/29/16 Levothyroxine Sodium [Synthroid] 175 mcg PO DAILY 01/29/16 Metoclopramide HCl [Reglan] 5 mg PO QID 01/29/16 Omeprazole [Prilosec] 20 mg PO BID 01/29/16 Polyethylene Glycol 3350 [Gavilax] 17 gm PO DAILY 01/29/16 Umeclidinium [place] [Incruse Ellipta] 1 puff IH DAILY 01/29/16 rOPINIRole HCL [Requip] 2 mg PO HS 01/29/16 traMADol HCL [Ultram] 50 mg PO QID PRN 01/29/16 Insulin Glargine,Hum.rec.anlog [Lantus] 50 units SC HS #2 vial 01/31/16 Acetaminophen [Tylenol] 650 mg PO Q4H PRN 12/07/16 Albuterol Sulfate [Albuterol Sulfate 2.5 MG/3 ML] 2.5 mg IH Q6H PRN 12/07/16 Docusate Sodium [Colace] 200 mg PO HS PRN 12/07/16 Sennosides [Senna Lax] 2 tab PO BID PRN 12/07/16 Citalopram Hydrobromide [Citalopram HBr] 40 mg PO DAILY 01/05/17 HYDROcodone/ACETAMINOPHEN [[place] 5-325 Tablet] 5 - 325 mg PO QID PRN 01/05/17 Insulin Glargine,Hum.rec.anlog [Lantus Solostar] 50 unit SQ HS 01/05/17 Ipratropium [place] [Atrovent Hfa] 17 mcg IH QID PRN 01/05/17 Levalbuterol Tartrate [Xopenex Hfa] 90 mcg IH Q8H PRN 01/05/17 Losartan Potassium [Cozaar] 50 mg PO DAILY 01/05/17 Mometasone Furoate [Nasonex] 2 spray NS DAILY 01/05/17 Levofloxacin [Levaquin] 750 mg PO DAILY #7 tab 01/06/17
[2017-01-07] MEDS: FINASTERIDE 5 MG TABLET PO SCH (09:59)
[2017-01-07] MEDS: POLYETHYLENE GLYCOL 3350 119 GM BTL PO SCH (09:59)
[2017-01-07] MEDS: CLOPIDOGREL BISULFATE 75 MG TABLET PO SCH (09:59)
[2017-01-07] MEDS: LOSARTAN POTASSIUM 50 MG TABLET PO SCH (09:59)
[2017-01-07] MEDS: CITALOPRAM HYDROBROMIDE 20 MG TABLET PO SCH (09:59)
[2017-01-07] MEDS: NON-FORMULARY 1 DOSE DOSE (Umeclidinium Bromide [Incruse Ellipta] 1 PUFF) IH SCH (09:59)
[2017-01-07] MEDS: ASPIRIN 325 MG TABLET.DR PO SCH (09:59)
[2017-01-07] MEDS: SENNOSIDES 8.6 MG TABLET PO SCH (09:59)
[2017-01-07] MEDS: METOCLOPRAMIDE HCL 5 MG TABLET PO SCH ×2 (09:59→14:18)
[2017-01-07] MEDS: MOMETASONE FUROATE 120 SPRAY INHALER NS SCH (10:02)
[2017-01-07] MEDS: FLUTICASONE/SALMETEROL 14 PUFF DISK.W.DEV IH SCH (10:03)
[2017-01-07 15:14] VITALS: BP 152/86
== END 2017-01-07 15:15 | disposition home health service (06) ==
LOC: ER 03:14 → MS 04:33
PROVIDERS: ADMIT Nurse Practitioner; ATTEND Family Medicine
DX: J18.1 Lobar pneumonia, unspecified organism (principal); Z87.891 Personal history of nicotine dependence; J44.9 Chronic obstructive pulmonary disease, unspecified; R33.9 Retention of urine, unspecified; K59.00 Constipation, unspecified; E87.1 Hypo-osmolality and hyponatremia; D64.9 Anemia, unspecified; E11.649 Type 2 diabetes mellitus with hypoglycemia without coma; Z79.4 Long term (current) use of insulin; E03.9 Hypothyroidism, unspecified; K21.9 Gastro-esophageal reflux disease without esophagitis
CPT/HCPCS: 36415; 71010; 80048; 80053; 83880; 84484; 85025; 87040; 87070; 87449; 93005; 94640; 96365; 96366; 96372; 99284; G0378

== ENCOUNTER 2017-02-12 15:44 | Emergency (ER) | payer MEDICARE, OTHER ==
[2017-02-12 15:52] VITALS: BP 130/55
[2017-02-12 15:59] LABS: Hematocrit 31.2 % (42.0-52.0); Hemoglobin 8.7 gm/dL (13.5-18.0); Mean Cell Volume 67.4 fl (78-100); Mean Corpuscular Hemoglobin 18.8 pg (27-31); Mean Corpuscular Hgb Conc 27.9 g/dl (32-36); Mean Platelet Volume 8.8 fl (6.0-9.5); NRBC# 0.1 k/mm3 (0-1); Neutrophil # 9.6 K/mm3 (1.3-6.0); Neutrophil % 51.6 % (42-75.0); Platelet Count 458 K/mm3 (150-450); Red Blood Count 4.63 M/mm3 (4.7-6.0); Red Cell Distribution Width 17.5 % (11.5-14.0); White Blood Count 18.5 K/mm3 (4.0-10.5)
[2017-02-12 16:00] LABS: Total Cells Counted 100
[2017-02-12 16:07] LABS: Prothrombin Time (Patient) 10.6 Seconds (9.4-11.4)
[2017-02-12 16:09] LABS: INR 1.02 INR (0.90-1.10); Partial Thrombolplastin Time 28.7 Seconds (24-32)
[2017-02-12 16:14] LABS: Albumin * 2.9 gm/dl (3.4-5.0); Bilirubin, Total 0.2 mg/dL (0.0-1.1); Ca. Corrected For Albumin 9.3 mg/dL (8.4-10.2); Calcium * 8.7 mg/dL (7.9-10.9); Potassium 4.6 mmol/L (3.4-4.6); Total Protein 7.7 gm/dL (6.2-8.2)
[2017-02-12 16:17] LABS: Troponin I 0.02 ng/ml (0.00-0.10)
[2017-02-12 16:28] LABS: Anion Gap 16.6 mmol/L (6.8-13.8)
[2017-02-12] MEDS ORDERED: EPINEPHRINE IV ONE ×2 (16:30)
[2017-02-12] MEDS ORDERED: DEXTROSE 5% IV ONE ×2 (16:30)
[2017-02-12] MEDS ORDERED: WATER IV ONE ×2 (16:30)
[2017-02-12 16:31] LABS: Band 1 % (0-2.0); Eosinophil 2 % (0-3); Lymphocyte 42 % (20-51); Monocyte 6 % (0-9); Neutrophil 49 % (42-75); Neutrophil # 9.1 K/mm3 (1.3-6.0)
[2017-02-12 16:32] LABS: Platelet Estimate Increased (NORMAL)
[2017-02-12 16:33] LABS: Anisocytosis 2+
[2017-02-12 16:34] LABS: Poikilocytosis 2+
[2017-02-12] MEDS ORDERED: EPINEPHrine 0.1 MG/ML DISP.SYRIN IV ONE ×3 (16:49→17:02)
--- NOTE | 2017-02-12 16:50 | OR ---
Anesthesia Procedure Note - Anesthesia Procedure Note Date of Service: 02/12/17 Narrative: Vital Signs - Last Taken Temp 36.7 C 01/07/17 15:10 Pulse 83 02/12/17 15:47 Resp 21 H 02/12/17 15:47 BP 130/55 02/12/17 15:47 Pulse Ox O2 Oxygen Delivery Method Ambu-Bag 02/12/17 16:48 ANESTHESIA PROCEDURE NOTE Date of Procedure: 02/12/2017. Time of procedure: 1600. Performed by: Sylvain Porras CRNA Fleet Sales Associate: None. Preprocedure diagnosis: Cardiopulmonary arrest. Post procedure diagnosis: Same. Procedure: Tracheal intubation. Indications: This is 77-year-old male who is in in the emergency room in cardiopulmonary arrest. Findings: See below. Details of the procedure: The patient's Be airway was removed intact. Pt was intubated with a #8 ETT, using a #3 Sosa blade. Tube secured at 23 cm at lips. Bilateral equal breath sounds noted. Positive ETCO2 noted. Chest X ray ordered. EBL: Minimal. Fluids: N/A. Specimen: N/A. Post procedure condition: The patient tolerated the procedure well. No complications were noted. Thank you for this consultation. Sylvain Porras CRNA
--- NOTE | 2017-02-12 16:55 | ERNOTE ---
CARDIAC HPI - Narrative Date of Service: 02/12/17 Narrative: Prior to coming to the ER, complained of not being able to breathe well. Then collapsed. EMS called. Asystole, then PEA. CPR, then IO. Adrenalin, then sinus rhythm with pulse, which was sustained all the way to the [facility] ER. LMA and Bag ventilation with good response. Second IV in ER. More boluses of adrenalin and an adrenalin drip. Intubated by anesthesia. Eventually family arrived. EKG showed a fib. Family explained he did not wanted to be sustained like this. The entire time, his pupils remained small and non reactive. Following the entire present families' wished, we stopped life support. Time of was 1713. - General Source: family, EMS Exam Limitations: clinical condition - History of Present Illness Severity: severe - Immun/Allergies/Home Medicatons Immunizations: IMMUNIZATION HX Immunizations Up to Date doesn't know History of Influenza Vaccine No Hx Pneumococcal Vaccination No Allergies/Adverse Reactions: Allergies Allergy/AdvReac Type Severity Reaction Status Date / Time lisinopril Allergy Severe Swelling Verified 01/05/17 05:26 of Tongue penicillin G Allergy Mild Hives Verified 01/05/17 05:26 Home Medications: Ambulatory Orders Medication Instructions Recorded Aspirin 325 mg PO DAILY 01/29/16 Atorvastatin Calcium 80 mg PO HS 01/29/16 Clopidogrel Bisulfate [Plavix] 75 mg PO DAILY 01/29/16 Finasteride [Proscar] 5 mg PO DAILY 01/29/16 Fluticasone/Salmeterol [Advair 1 puff IH BID 01/29/16 250-50 Diskus] Gabapentin 300 mg PO TID 01/29/16 Insulin Aspart [Novolog] 15 units SC TID 01/29/16 Levothyroxine Sodium [Synthroid] 175 mcg PO DAILY 01/29/16 Metoclopramide HCl [Reglan] 5 mg PO QID 01/29/16 Omeprazole [Prilosec] 20 mg PO BID 01/29/16 Polyethylene Glycol 3350 [Gavilax] 17 gm PO DAILY 01/29/16 Umeclidinium [place] [Incruse 1 puff IH DAILY 01/29/16 Ellipta] rOPINIRole HCL [Requip] 2 mg PO HS 01/29/16 traMADol HCL [Ultram] 50 mg PO QID PRN 01/29/16 Insulin Glargine,Hum.rec.anlog 50 units SC HS #2 vial 01/31/16 [Lantus] Acetaminophen [Tylenol] 650 mg PO Q4H PRN 12/07/16 Albuterol Sulfate [Albuterol 2.5 mg IH Q6H PRN 12/07/16 Sulfate 2.5 MG/3 ML] Docusate Sodium [Colace] 200 mg PO HS PRN 12/07/16 Sennosides [Senna Lax] 2 tab PO BID PRN 12/07/16 Citalopram Hydrobromide 40 mg PO DAILY 01/05/17 [Citalopram HBr] HYDROcodone/ACETAMINOPHEN [[place] 5 - 325 mg PO QID PRN 01/05/17 5-325 Tablet] Insulin Glargine,Hum.rec.anlog 50 unit SQ HS 01/05/17 [Lantus Solostar] Ipratropium [place] [Atrovent Hfa] 17 mcg IH QID PRN 01/05/17 Levalbuterol Tartrate [Xopenex Hfa] 90 mcg IH Q8H PRN 01/05/17 Losartan Potassium [Cozaar] 50 mg PO DAILY 01/05/17 Mometasone Furoate [Nasonex] 2 spray NS DAILY 01/05/17 Levofloxacin [Levaquin] 750 mg PO DAILY #7 tab 01/06/17 Review of Systems - Review of Systems Constitutional: Present: no symptoms reported - code - Patient's Past Medical History Patient History - Medical: Arthritis, Cataracts, Diabetes Type 2, Depression, GERD, Hypothyroidism Patient History - Cardiac/Respiratory: Asthma, Coronary Heart Disease, COPD, Hypertension, Hyperlipidemia, Myocardial Infarction Patient History - Cancer: No Hx of Cancer Patient History - Surgical Procedures: Appendectomy, Cataracts, Coronary Bypass Surgery, Total Hip Replacement Patient History - Other: None - Family History Father Family History - Medical: Family History - Cardiac/Respiratory: Hypertension Mother Family History - Medical: , Diabetes Type 2 Family History - Cardiac/Respiratory: Coronary Heart Disease Family History - Cancer: History Unknown - Social History Living Situations: home Abuse History: No History of abuse Psych History: Hx of Depression Does anyone smoke in the home?: No Alcohol Use: none Drug Use: none - Immunizations Immunizations Up to Date: - doesn't know Hx Pneumococcal Vaccination: No History of Influenza Vaccine: No CP Exam - Physical Exam General Appearance: Present: other - code Eyes, Ears, Nose, Throat Exam: Present: normal ENT inspection, other - pupils small fixed equal normocephalic. Absent: scleral icterus (R) Neck: Present: normal inspection Respiratory: Present: lungs clear Cardiovascular/Chest: Present: other - regular faint pulse Gastrointestinal/Abdominal: Present: other - distended abdomen, ng tube placed, stomach contents draining Extremity: Present: other - pale extremities, cold, IO in place Neurologic: Present: other - code ED Progress - PROGRESS/REASSESSMENT Chief Complaint: Code Blue - VITAL SIGNS Vital Signs - Last Taken Temp 36.7 C 01/07/17 15:10 Pulse 83 02/12/17 15:47 Resp 21 H 02/12/17 15:47 BP 130/55 02/12/17 15:47 Pulse Ox - RESULTS AND ORDERS Patient's Lab Results:: I have reviewed the patient's lab results. Results and Orders: Abnormal/Pending Laboratory Last 24 HRS 02/12/17 02/12/17 15:30 15:30 WBC 18.5 H RBC 4.63 L Hgb 8.7 L Hct 31.2 L MCV 67.4 L MCH 18.8 L MCHC 27.9 L RDW 17.5 H Plt Count 458 H Immature Gran % (Auto) 4.30 H Immature Gran # (Auto) 0.79 H Neutrophils # 9.6 H Neutrophils # (Manual) 9.1 H Lymphocytes # 6.0 H Lymphocytes # (Manual) 7.8 H Monocytes # 1.5 H Monocytes # (Manual) 1.1 H Absolute Basophils 0.2 H Platelet Estimate Increased H Sodium 129 L Chloride 94 L Carbon Dioxide 23.0 L Anion Gap 16.6 H Random Glucose 279 H AST 60 H Albumin 2.9 L - EKG EKG #1 EKG Read: Interp. by me - a fib with rvr, aberrant conduction, incomplete RBBB, septal [place] of indeterminant age, moderate t wave abnormality, lateral ischemia Departure - Departure Clinical Impression: Cardiac arrest Condition:
== END 2017-02-12 19:32 | disposition expired ==
LOC: ER 15:44
PROC: 0BH17EZ Insertion of Endotracheal Airway into Trachea, Via Natural or Artificial Opening (ICD-10-PCS; principal; 2017-02-12)
PROC: 0T9B70Z Drainage of Bladder with Drainage Device, Via Natural or Artificial Opening (ICD-10-PCS; 2017-02-12)
DX: I46.9 Cardiac arrest, cause unspecified (principal); I48.91 Unspecified atrial fibrillation